=== PATIENT | male | born 1940 | race Caucasian/White ===

== ENCOUNTER → 2024-02-24 | Outpatient (REF) | payer MEDICARE, BC, SELFPAY ==
[2024-02-24 19:44] LABS: Urine Albumin Negative (Neg - Trace); Urine Bilirubin Negative (Negative); Urine Character Clear (Clear); Urine Color Yellow; Urine Glucose Negative (Negative); Urine Ketone Negative (Negative); Urine Leukocyte 2+ (Negative); Urine Nitrite Negative (Negative); Urine Occult Blood Negative (Negative); Urine Urobilinogen Negative (Neg - 1+)
[2024-02-24 19:57] LABS: Urine Squamous Cell 0-2 /LPF (Few)
[2024-02-24 19:58] LABS: Urine Calcium Oxalate Crystals Present; Urine Red Blood Cell 0-2 /HPF (0-2); Urine White Cell 26-30 /HPF (0-5)
[2024-02-24 19:59] LABS: Urine Bacteria Moderate (Negative)
== END ==
LOC: OLABMERCHI
PROVIDERS: ATTENDING PHYSICIAN Hospitalist
DX: N39.0 Urinary tract infection, site not specified (principal)
CPT/HCPCS: 81003; 81015; 87086; 87147; 87186

== ENCOUNTER 2024-03-23 23:20 | Emergency (ER) | payer MEDICARE, BC, SELFPAY ==
[2024-03-23 23:22] VITALS: BP 182/84; BMI 27.1
[2024-03-24] VITALS: BP 171/81
--- NOTE | 2024-03-24 00:21 | ED.GENMED ---
History of Present Illness
General
Chief Complaint: Fall
Source: patient
Exam Limitations: none
Time Seen by Provider: 03/24/24 00:12
Nursing documentation reviewed up to this point in time: agreed with
Travel History
Have you had any contact with someone who has COVID-19?: Unable to Answer
Do you have any symptoms of coronavirus? Fever > 100 degrees, chills, cough, shortness of breath, sore throat, loss of taste or smell, muscle aches, or headache?: Unable to Answer
History of Present Illness
History of Present Illness:
Patient with history of dementia, presents to ED from longterm secondary to scalp laceration, noted by staff members this evening. Patient was noted to be crawling in his room, with blood streaking down his face. Patient unable to recall if he
fell down, but does remember having intense pain on top of his head. Denies neck pain. Denies blurred vision. Denies loss of sensation or weakness. Denies chest pain. Denies back pain. Denies abdominal pain. Denies nausea or vomiting.
Past History
Past History
ED Past Medical History: GERD, HTN, Hypercholesterolemia and Other (Prostatic hypertrophy, macular degeneration, bilateral hearing aids)
ED Past Surgical History: Cholecystectomy
Social History
Personal:
Living: with family
Employment: Retired
Review of Systems
Review of Systems
Allergies reviewed?: Yes
Unable to obtain full review of systems at this time due to: dementia
All Other Systems: Not applicable
Phy Exam
Physical Exam
Physical Exam:
Physical Exam
General: no apparent distress, not acutely ill. afebrile
Head: an approx 3cm linear laceration over top of scalp without bleeding.
Neck: supple. normal range of motion.
Heart: s1/s2 regular rate and rhythm, no murmur. equal radial pulses.
Lungs: no acute respiratory distress. clear bilaterally
Abdomen: normal bowel sounds. not tender.
Neuro: alert and oriented x 2. no focal neurological deficits
Skin: no rash
Psychiatric: well kept. interactive and cooperative
Extremities: no edema. no calf tenderness.
Course
Orders/Labs/Results
Orders:
Orders
03/24/24 00:17
CT Head W/o Iv Contrast Urgent
Comment:
Reason For Exam: scalp laceration, after trauma
Vital Signs
Initial and Last Documented VS:
Initial Vital Signs
Temp Pulse Resp BP Pulse Ox
97.7 F 57 16 182/84 98
03/23/24 23:22 03/23/24 23:22 03/23/24 23:22 03/23/24 23:22 03/23/24 23:22
Last Documented Vital Signs
Temp Pulse Resp BP Pulse Ox
97.7 F 58 16 143/85 97
03/23/24 23:22 03/24/24 01:43 03/24/24 01:43 03/24/24 03:00 03/24/24 03:45
Procedures
Laceration Closure
Scalp:
Status of Wound: clean
Size of Wound in cm: 3
Description of Wound Edges: sharp
Preparation: cleaned with SurClens
Revision/Debridement: routine- no revision
Skin Closure Material: skin ayla (3 ayla)
MDM/Problems Addressed
MDM/Problems Addressed:
Wound well-approximated with 3 ayla, without complication. Patient remains hemodynamically and neurologically intact during observation. No other signs of trauma noted. Per longterm, patient has been behaving normally recently, without any
significant changes. Patient does fall frequently, per longterm. As such, no further workup is necessary at this point.
*Critical Care Note
Total Time (30-74mins, 75-104mins- exclusive of procedures): Not Applicable
ED Attending Note
-
Portions of this chart may have been created with voice recognition software.� Occasional wrong word or��sound alike� substitutions may have occurred due to the inherent limitations of voice recognition software.
Discharge Plan
Departure
Patient Disposition: Skilled Nursing/SNF
Date of Disposition: 03/24/24
Time of Disposition: 01:18
Patient with high blood pressure during this ER visit?: Yes
Discharge Problem:
Laceration of scalp
Instructions: Head injury in adults, Laceration Repair With [place] (DC)
Prescriptions:
No Action
losartan 50 mg tablet
50 mg PO DAILY
simvastatin 20 mg tablet
20 mg PO DAILY
Hold Instructions: Resume on 10/27/23.
carbidopa-levodopa 25-100 mg tablet
1 tab PO BID
memantine 7 mg capsule,sprinkle,ER 24hr
7 mg PO DAILY
nitrofurantoin macrocrystal 50 mg Capsule
50 mg PO DAILY Qty: 30 0RF
Hold Instructions: Resume on 10/26/23.
polyethylene glycol 3350 [HealthyLax] 17 gram Powder In Packet
17 g PO DAILY Qty: 30 0RF
pantoprazole 40 mg Tablet,Delayed Release (Dr/Ec)
40 mg PO DAILY Qty: 30 0RF
pramipexole 0.25 mg Tablet
0.25 mg PO DAILY
bethanechol chloride 50 mg Tablet
25 mg PO BID
tamsulosin 0.4 mg Capsule
0.4 mg PO DAILY
finasteride 5 mg Tablet
5 mg PO DAILY
Referrals:
Shell Abel DO [Family Provider] -
Activity Restrictions/Additional Instructions:
As discussed, you are being discharged back to longterm for continual care. [place] will need to be removed in 7 to 10 days.
Interventions
Interventions:
*Risk Screen - Suicide Last Done: 03/23/24 23:22
*General Assessment Last Done: 03/23/24 23:22
*Neglect/Abuse Screening Last Done: 03/23/24 23:22
ED- Fall Risk Assessment Last Done: 03/23/24 23:34
*ED COVID-19 Vaccine History Last Done: 03/23/24 23:22
*Nursing Disposition Last Done: 03/24/24 04:16
ED-Musculoskeletal Assessment Last Done: 03/23/24 23:34
ED- Neurological Assessment Last Done: 03/23/24 23:34
ED-Skin Assessment Last Done: 03/23/24 23:34
Discharge Date and Time
Discharge Date/Time: 03/24/24 04:17
Print Language: TOGOLESE
[2024-03-24 01:43] VITALS: BP 170/90
[2024-03-24 02:00] VITALS: BP 164/82
[2024-03-24 03:00] VITALS: BP 143/85
== END 2024-03-24 04:17 ==
LOC: EMR 23:20
PROVIDERS: EMERGENCY PHYSICIAN Emergency Medicine; FAMILY PHYSICIAN Hospitalist
DX: S01.01XA Laceration without foreign body of scalp, initial encounter (principal); W19.XXXA Unspecified fall, initial encounter; I10 Essential (primary) hypertension; F03.90 Unspecified dementia, unspecified severity, without behavioral disturbance, psychotic disturbance, mood disturbance, and anxiety
CPT/HCPCS: 99284; 12002; 70450

== ENCOUNTER 2024-05-01 15:40 | Emergency (ER) | payer MEDICARE, BC, SELFPAY ==
[2024-05-01 15:45] VITALS: BP 170/87
[2024-05-01 15:50] VITALS: BMI 27.8
--- NOTE | 2024-05-01 15:58 | ED.GENMED ---
History of Present Illness
General
Chief Complaint: Blood Pressure Problem
Source: patient
Exam Limitations: none
Time Seen by Provider: 05/01/24 15:49
Nursing documentation reviewed up to this point in time: agreed with
Travel History
Have you had any contact with someone who has COVID-19?: No
Do you have any symptoms of coronavirus? Fever > 100 degrees, chills, cough, shortness of breath, sore throat, loss of taste or smell, muscle aches, or headache?: No
History of Present Illness
History of Present Illness:
84-year-old male with past medical history of dementia Parkinson's abdominal aortic aneurysm hypertension prostatic hypertrophy sent from [facility] physical therapy. EMS reports the patient was doing physical therapy and physical therapist
noticed the patient legs seem swollen his blood pressure was 160s over 90s higher than normal. Patient is awake alert he is minimally confused but able to answer questions has no complaints at this time. It is documented from medical chart from
assisted the patient is only on losartan 50 mg once daily for blood pressure. No other blood pressure medicine. Patient has no complaints he denies any shortness of breath chest pain.
Past History
Past History
ED Past Medical History: GERD, HTN, Hypercholesterolemia and Other (Prostatic hypertrophy, macular degeneration, bilateral hearing aids)
ED Past Surgical History: Cholecystectomy
Social History
Personal:
Living: with family
Employment: Retired
Review of Systems
Review of Systems
Allergies reviewed?: Yes
All Other Systems: ROS reviewed and negative except as documented in HPI and ROS
Constitutional: Reports no symptoms
Respiratory: Reports no symptoms
Cardiac: Reports no symptoms
ABD/GI: Reports no symptoms
: Reports no symptoms
Musculoskeletal: Reports other (lower extremity swelling b/l )
Skin: Reports no symptoms
Neurological: Reports no symptoms
Psychiatric: Reports no symptoms
Phy Exam
General Physical Exam
General Presentation: no apparent distress
General age: appears stated age
General Skin: warm and dry
General Habitus: normal
General Mental: alert
General Hydration: appears well hydrated
Cardiovascular Exam
Cardiovascular Exam: bradycardia
Pulmonary Exam
Pulmonary Exam: lungs clear and no respiratory distress
Neurological Exam
Neurological Exam: alert
Musculoskeletal Exam
Musculoskeletal Exam: other (Patient with swelling to ankles lower extremities)
Course
Orders/Labs/Results
Orders:
Orders
05/01/24 15:48
Electrocardiogram (*1) Urgent
Reason for Study: Bradycardia / Tachycardia
05/01/24 15:49
EKG- Treatment ONCE
05/01/24 16:06
CMP [Comprehensive Metabolic Panel] Urgent
Complete Blood Count/With Diff Urgent
05/01/24 16:13
Venous Doppler Lwr Ext Bilat [US Periph Venous LOWER Ext Asael] Urgent
Comment:
Reason For Exam: b/l l/e swelling
Abnormal Lab Results
05/01/24
16:06
RBC 4.61 L 10^6/uL
(4.70-6.10)
MCV 94.8 H fL
(80.0-94.0)
MCH 32.1 H pg
(27.0-31.0)
Absolute Lymphs (auto) 1.0 L 10^3/uL
(1.2-3.4)
Absolute Monos (auto) 0.7 H 10^3/uL
(0.1-0.6)
Lymphocytes % 15.9 L %
(20.5-51.1)
Monocytes % 11.2 H %
(1.7-9.3)
BUN 27 H mg/dl
(9-20)
Glucose 101 H mg/dl
(70-99)
Total Bilirubin 1.5 H mg/dl
(0.2-1.3)
05/01/24 16:06
05/01/24 16:06
Vital Signs
Initial and Last Documented VS:
Initial Vital Signs
Pulse Ox
98
05/01/24 15:44
Last Documented Vital Signs
Temp Pulse Resp BP Pulse Ox
97.8 F 54 13 182/83 97
05/01/24 15:45 05/01/24 16:15 05/01/24 16:15 05/01/24 16:10 05/01/24 16:15
MDM/Problems Addressed
Differential Diagnosis Includes:
not limited to: edema elevated bp
MDM/Problems Addressed:
Patient is a 84-year-old male sent from [facility] patient was in physical therapy and they noticed his legs were more swollen than normal and his blood pressure was on the higher side. Patient presents awake alert no acute distress he
has no complaints he is able to answer questions mild memory issues but does answer questions appropriately. On exam he does have some swelling to lower extremities however there is no erythema or evidence of infection nontender no calf tenderness
ultrasound negative bilateral lower extremity for DVT. Patient is afebrile normal white count stable hemoglobin, BUN elevated at 27 with normal creatinine.
Blood pressure on the higher side 170s 180s over 80s. Heart rate in the 50s. Son at bedside reports this is patient's normal heart rate. Patient is in no acute distress and has no complaints at this time. Lungs are clear nontachycardic
nonhypoxic no history of CHF. Nothing urgent to do here in the ER will DC with primary care physician evaluation for further management of swelling and elevated blood pressure. Patient is currently at side only taking losartan. Son at bedside
reports patient is due to see primary care physician tomorrow at [facility].
Chronic conditions affecting care: HTN
*Radiology
Radiology exam reviewed: radiology read reviewed
*EKG
Interpreted by ED Provider?: Yes
Heart Rate: 57
Rate: bradycardiac
Rhythm: sinus
*Critical Care Note
Total Time (30-74mins, 75-104mins- exclusive of procedures): Not Applicable
ED Attending Note
-
Portions of this chart may have been created with voice recognition software.� Occasional wrong word or��sound alike� substitutions may have occurred due to the inherent limitations of voice recognition software.
Discharge Plan
Departure
Patient Disposition: Correction/SNF
Date of Disposition: 05/01/24
Time of Disposition: 17:52
Patient with high blood pressure during this ER visit?: Yes
Condition: Fair
Covid-19: Not Applicable
Discharge Problem:
Bilateral edema of lower extremity, elevated blood pressure
Instructions: High Blood Pressure (DC), Swelling, BLOOD PRESSURE
Prescriptions:
No Action
losartan 50 mg tablet
50 mg PO DAILY
simvastatin 20 mg tablet
20 mg PO HS
Hold Instructions: Resume on 10/27/23.
carbidopa-levodopa 25-100 mg tablet
1 tab PO BID
memantine 7 mg capsule,sprinkle,ER 24hr
7 mg PO DAILY
nitrofurantoin macrocrystal 50 mg Capsule
50 mg PO DAILY Qty: 30 0RF
Hold Instructions: Resume on 10/26/23.
polyethylene glycol 3350 [HealthyLax] 17 gram Powder In Packet
17 g PO DAILY Qty: 30 0RF
pantoprazole 40 mg Tablet,Delayed Release (Dr/Ec)
40 mg PO DAILY Qty: 30 0RF
pramipexole 0.25 mg Tablet
0.25 mg PO DAILY
bethanechol chloride 50 mg Tablet
25 mg PO BID@0700,1500
tamsulosin 0.4 mg Capsule
0.4 mg PO DAILY
finasteride 5 mg Tablet
5 mg PO DAILY
Referrals:
UNKNOWN - PT DOES,NOT KNOW [Family Provider] -
Activity Restrictions/Additional Instructions:
Patient must be evaluated by primary care physician for further evaluation and possible treatment for lower extremity swelling and elevated blood pressure. Patient had an ultrasound today of bilateral lower extremities which were negative for DVT.
Patient had blood work done, patient is mildly dehydrated and should increase water intake.
return if any worsening of symptoms
Interventions
Interventions:
*Risk Screen - Suicide Last Done: 05/01/24 15:50
*General Assessment Last Done: 05/01/24 15:50
*Neglect/Abuse Screening Last Done: 05/01/24 15:50
*ED COVID-19 Vaccine History Last Done: 05/01/24 15:50
ED- Cardiac Assessment Last Done: 05/01/24 15:50
ED- Pulmonary Assessment Last Done: 05/01/24 15:50
Discharge Date and Time
Print Language: NEPALI
[2024-05-01 16:10] VITALS: BP 182/83
[2024-05-01 16:14] LABS: % Basophils 0.6 % (0-2); % Eosinophils 1.9 % (0-6); % Immature Granulocytes 0.3 % (0-0.5); % Lymphocytes 15.9 % (20.5-51.1); % Monocytes 11.2 % (1.7-9.3); % Neutrophils 70.1 % (42.2-75.2); Absolute Eosinophils 0.1 10^3/uL (0-0.7); Absolute Monocytes 0.7 10^3/uL (0.1-0.6); Absolute Neutrophils 4.5 10^3/uL (1.4-6.5); Hematocrit 43.7 % (39.0-52.0); Hemoglobin 14.8 g/dL (13.0-18.0); Mean Corp Hgb Conc. 33.9 g/dL (33.0-37.0); Mean Corpuscular Hgb 32.1 pg (27.0-31.0); Mean Corpuscular Volume 94.8 fL (80.0-94.0); Mean Platelet Volume 10.1 fL (7.4-10.4); Nucleated Red Blood Cells % 0 % (-); Platelet Count 163 10^3/uL (130-400); Red Blood Cell Count 4.61 10^6/uL (4.70-6.10); Red Cell Dist. Width 13.2 % (11.5-14.5); White Blood Cell Count 6.4 10^3/uL (4.8-10.8)
[2024-05-01 16:47] LABS: ALT (SGPT) 13 U/L (0-50); AST (SGOT) 29 U/L (17-59); Albumin 4.2 g/dl (3.5-5.0); Alkaline Phosphatase 62 U/L (38-126); Blood Urea Nitrogen 27 mg/dl (9-20); Calcium 9.8 mg/dl (8.4-10.2); Carbon Dioxide 25 mmol/L (22-30); Chloride 104 mmol/L (98-107); Estimated Creatinine Clearance 48 ml/min; Glucose 101 mg/dl (70-99); Potassium 4.6 mmol/L (3.5-5.1); Sodium 137 mmol/L (135-145); Total Bilirubin 1.5 mg/dl (0.2-1.3); Total Protein 7.4 g/dl (6.3-8.2); eGFR 59.26
== END 2024-05-01 18:06 ==
LOC: EMR 15:40
PROVIDERS: EMERGENCY PHYSICIAN Emergency Medicine
DX: R60.0 Localized edema (principal); G20.A1 Parkinson's disease without dyskinesia, without mention of fluctuations; F02.80 Dementia in other diseases classified elsewhere, unspecified severity, without behavioral disturbance, psychotic disturbance, mood disturbance, and anxiety; I10 Essential (primary) hypertension; K21.9 Gastro-esophageal reflux disease without esophagitis; N40.0 Benign prostatic hyperplasia without lower urinary tract symptoms; E78.00 Pure hypercholesterolemia, unspecified; H35.30 Unspecified macular degeneration; Z79.899 Other long term (current) drug therapy; Z90.49 Acquired absence of other specified parts of digestive tract
CPT/HCPCS: 99284; 80053; 85025; 93005; 93970

== ENCOUNTER 2024-06-27 16:29 | Observation (INO) | payer MEDICARE, BC, SELFPAY ==
[2024-06-27] VITALS (11 sets, daily range): BP systolic 136–191; BP diastolic 69–109; BMI 26.5; BMI 25.4
[2024-06-27 10:26] LABS: Urine Albumin Negative (Neg - Trace); Urine Bilirubin Negative (Negative); Urine Character Clear (Clear); Urine Color Yellow; Urine Glucose Negative (Negative); Urine Ketone Negative (Negative); Urine Leukocyte 2+ (Negative); Urine Nitrite Negative (Negative); Urine Occult Blood Negative (Negative); Urine Specific Gravity 1.025 (<1.030); Urine Urobilinogen Negative (Neg - 1+)
[2024-06-27 10:34] LABS: % Basophils 0.6 % (0-2); % Eosinophils 0.2 % (0-6); % Immature Granulocytes 0.6 % (0-0.5); % Lymphocytes 14.6 % (20.5-51.1); % Monocytes 21.3 % (1.7-9.3); % Neutrophils 62.7 % (42.2-75.2); Absolute Lymphocytes 0.7 10^3/uL (1.2-3.4); Absolute Monocytes 1.1 10^3/uL (0.1-0.6); Absolute Neutrophils 3.2 10^3/uL (1.4-6.5); Hematocrit 40.3 % (39.0-52.0); Hemoglobin 14.3 g/dL (13.0-18.0); Mean Corp Hgb Conc. 34.8 g/dL (33.0-37.0); Mean Corpuscular Hgb 31.8 pg (27.0-31.0); Mean Corpuscular Volume 91.5 fL (80.0-94.0); Nucleated Red Blood Cells % 0 % (-); Platelet Count 139 10^3/uL (130-400); Red Blood Cell Count 4.46 10^6/uL (4.70-6.10); Red Cell Dist. Width 12.7 % (11.5-14.5); White Blood Cell Count 5.1 10^3/uL (4.8-10.8)
[2024-06-27 10:40] LABS: ALT (SGPT) 21 U/L (0-50); AST (SGOT) 27 U/L (17-59); Albumin 3.9 g/dl (3.5-5.0); Alkaline Phosphatase 58 U/L (38-126); Blood Urea Nitrogen 22 mg/dl (9-20); Calcium 9.5 mg/dl (8.4-10.2); Carbon Dioxide 25 mmol/L (22-30); Chloride 104 mmol/L (98-107); Estimated Creatinine Clearance 51 ml/min; Glucose 112 mg/dl (70-99); Potassium 3.8 mmol/L (3.5-5.1); Sodium 137 mmol/L (135-145); Total Bilirubin 1.4 mg/dl (0.2-1.3); Total Protein 6.5 g/dl (6.3-8.2); eGFR 59.26
[2024-06-27 10:41] LABS: Lactic Acid 1.7 mmol/L (0.7-2.0)
--- NOTE | 2024-06-27 10:48 | ED.GENMED ---
History of Present Illness
General
Chief Complaint: Fall
Source: patient
Exam Limitations: none
Time Seen by Provider: 06/27/24 10:14
Nursing documentation reviewed up to this point in time: agreed with
History of Present Illness
History of Present Illness:
pt is a 84 y/o F with h/o AAA, parkinsons, dementia, amb dysfunction, htn
here after being found by staff at [facility] on the floor,
pt says he may have rolled off the bed but cannot remember
he has dementia and according to the son, is at [facility]
he has a fever here they were unaware of
he has no complaints
apparently pt said he may have rolled out of the bed
he has a h/o utis and is on macrobid low dose at baseline
no vomiting, abdomianl pain,, cp, sob, headache, neck pain
Past History
Past History
ED Past Medical History: GERD, HTN, Hypercholesterolemia and Other (Prostatic hypertrophy, macular degeneration, bilateral hearing aids)
ED Past Surgical History: Cholecystectomy
Social History
Personal:
Living: with family
Employment: Retired
Review of Systems
Review of Systems
Allergies reviewed?: Yes
Unable to obtain full review of systems at this time due to: dementia
All Other Systems: Not applicable
Phy Exam
Physical Exam
Physical Exam:
GENERAL: Alert , in no apparent distress, dementia
EYE: pupils equal and reactive
NECK: Supple
ENT: o/p clr, mmm.
CARDIAC: Regular rate and rhythm .
LUNGS: Clear breath sounds bilaterally, no acute respiratory distress, no wheezes/rales/rhonchi
ABDOMEN: Soft, without focal tenderness, no r/g, no cvat, normal bowel sounds
NEUROLOGICAL: Alert and oriented x 2, no focal neuro deficits - some memory issues, some confusion, generally weak but no focal weakness
SKIN: Warm and dry, skin intact.
MUSCULOSKELETAL: No edema, well perfused. neg giuseppe's sign
PSYCH: Normal and appropriate interaction. dementia
Course
Orders/Labs/Results
Orders:
Orders
06/27/24 10:18
Complete Blood Count/With Diff Urgent
Comprehensive Metabolic Panel Urgent
Creatine Phosphokinase Urgent
Comment: ADDON
Lactate Level [Lactic Acid] Routine
Urinalysis Urgent
Date Specimen was Collected: 06/27/24
Time Specimen was Collected: 10:17
Urine Microscopic Urgent
Date Specimen was Collected: 06/27/24
Time Specimen was Collected: 10:17
06/27/24 10:20
EKG [Electrocardiogram (*1)] Urgent
Reason for Study: Fatigue / Weakness
06/27/24 10:21
EKG- Treatment ONCE
06/27/24 10:43
Acetaminophen [Tylenol] 650 mg PO NOW STA
06/27/24 10:44
CT Cervical Spine W/o Iv Contr Urgent
Comment:
Reason For Exam: unwitnessed fall
06/27/24 10:45
Add On- LAB Urgent
Tests Added?: cpk
CT Head W/o Iv Contrast Urgent
Comment:
Reason For Exam: unwitnessed fall, no thinners, dementia
CR Chest - 2 Views Urgent
Comment:
Reason For Exam: fever, fall, weakness
06/27/24 11:12
COVID-19 Antigen Urgent
Source: Nasal Swab
NT-proBNP Urgent
06/27/24 12:48
0.9% Sodium Chloride 500 ml [Nss] 500 ml IV BOLUS
06/27/24 Dinner
Regular
At Your Request: Limited, Greaser Operator Required
Does patient need a safe tray?: No
06/27/24 15:53
Carbidopa/Levodopa [Sinemet 25-100] 1 tablet PO NOW STA
Losartan [Cozaar] 50 mg PO NOW STA
06/27/24 15:58
Admit/Transfer Patient As Directed
Co-Sign Provider:
Level of Care: Observation services
Assign to:: Medical/Surgical
Physician / Group: Syl Jones
Diagnosis: TME 2/2 Covid-19
PRN Pain Medication Management As Directed
May give lesser potent ordered pain med per pt: Yes
preference::
Protocol:: Medication orders for pain may be administered in a
manner that supports deferring to patient preference
when the pt is:
- Requesting an ordered lesser potent pain medication.
Least to most potent pain medications are defined
as: acetaminophen < NSAID < tramadol < opioids
(morphine, oxycodone, hydromorphone).
- Requesting a lesser dose of the same medication IF
ORDERED.
- Requesting a less intrusive route of administration
if both routes are prescribed by the provider (PO <
IV).
06/27/24 16:00
Code Status As Directed
Resuscitation Status: Do not resuscitate
Reached after discussion with pt or family/Healthcare POA: Yes
DNR Bracelet Application ONCE
06/27/24 19:22
Acetaminophen [Tylenol] 650 mg PO Q4HPRN PRN
Bisacodyl [Dulcolax] 10 mg RECTAL [id number] PRN
Docusate W/Senna [Senokot-S] 1 tablet PO BIDPRN PRN
Enoxaparin Sodium [Lovenox] 40 mg SC QPM
Finasteride [Proscar] 5 mg PO DAILY
Nitrofurantoin Macrocrystal [Macrodantin] 50 mg PO DAILY
Pantoprazole [Protonix] 40 mg PO DAILY
Polyethylene Glycol Powder [Miralax] 17 grams PO DAILYPRN PRN
Pramipexole [Mirapex] 0.25 mg PO DAILY
Tamsulosin [Flomax] 0.4 mg PO DAILY
06/27/24 19:22
Activity As Directed
Activity Level: As Tolerated
Vital Signs As Directed
Frequency: Per unit guidelines
Ot Eval And Treat Routine
Pt Eval And Treat Routine
Activity Level: As Tolerated
DX Deep Vein Thrombosis Video Routine
06/27/24 19:45
0.9% Sodium Chloride 1000 ml [Nss] 1,000 ml IV 80 mls/hr
06/27/24 20:00
Bethanechol [Urecholine] 25 mg PO BID
Memantine HCl [Namenda] 5 mg PO BID
06/27/24 22:00
Atorvastatin [Lipitor] 10 mg PO HS
06/28/24 06:17
Basic Metabolic Panel IN AM
Complete Blood Count/With Diff IN AM
Magnesium IN AM
06/28/24 07:00
Carbidopa/Levodopa [Sinemet 25-100] 1 tablet PO BID@0700,1500
06/28/24 08:00
Losartan [Cozaar] 50 mg PO DAILY
Polyethylene Glycol Powder [Miralax] 17 grams PO DAILY
Abnormal Lab Results
06/27/24 06/27/24
10:18 11:12
RBC 4.46 L 10^6/uL
(4.70-6.10)
MCH 31.8 H pg
(27.0-31.0)
Absolute Lymphs (auto) 0.7 L 10^3/uL
(1.2-3.4)
Absolute Monos (auto) 1.1 H 10^3/uL
(0.1-0.6)
Immature Gran % 0.6 H %
(0-0.5)
Lymphocytes % 14.6 L %
(20.5-51.1)
Monocytes % 21.3 H %
(1.7-9.3)
BUN 22 H mg/dl
(9-20)
Glucose 112 H mg/dl
(70-99)
Total Bilirubin 1.4 H mg/dl
(0.2-1.3)
Creatine Kinase 229 H U/L
(55-170)
Ur Leukocyte Esterase 2+ A
(Negative)
Urine RBC 7-10 A /HPF
(0-2)
Urine WBC 16-20 A /HPF
(0-5)
Urine Bacteria Moderate A
(Negative)
SARS-CoV-2 Antigen Positive A
(Negative)
06/27/24 10:18
06/27/24 10:18
Vital Signs
Initial and Last Documented VS:
Initial Vital Signs
Temp Pulse Resp BP Pulse Ox
100.9 F H 64 12 164/71 93
06/27/24 10:05 06/27/24 10:05 06/27/24 10:05 06/27/24 10:05 06/27/24 10:05
Last Documented Vital Signs
Temp Pulse Resp BP Pulse Ox
98.1 F 50 16 136/69 95
06/27/24 23:40 06/27/24 23:40 06/27/24 23:40 06/27/24 23:40 06/27/24 23:40
MDM/Problems Addressed
Differential Diagnosis Includes:
uti, head injury, syncope, covid, pna
MDM/Problems Addressed:
natalie myles 84 y/o M with h/o parkinsons, dementia, chronic UTIs, from [facility], unwitnessed fall, on ground at most for 1-2 hours
no thinners, no complaints, at baseline
febrile, stable bp
covid + vaccniated; urine also appears infected (on chronic macrobid suppresion)
no lomeli
cxr clear, head/neck neg ct
generally weak
probable UTI thought pt's fever could be explained by covid
pt is chronic abx suppression for frequent utis
given pt's fall, weakness, and fever, with covid an dposs uti, will obs overnight for ivf
defer uti treatment to medicine team
*Critical Care Note
Total Time (30-74mins, 75-104mins- exclusive of procedures): Not Applicable
ED Attending Note
-
Portions of this chart may have been created with voice recognition software.� Occasional wrong word or��sound alike� substitutions may have occurred due to the inherent limitations of voice recognition software.
Discharge Plan
Departure
Patient Disposition: Admit
Date of Disposition: 06/27/24
Time of Disposition: 12:43
Admit to: Med/Surg
Presentation/result/management discussed w/ accepting MD/DO: Hospitalist
Condition: Fair
Covid-19: Not Applicable
Discharge Problem:
Acute UTI, COVID-19, Weakness
Interventions
Interventions:
*Risk Screen - Suicide Last Done: 06/27/24 10:09
*General Assessment Last Done: 06/27/24 10:09
*Neglect/Abuse Screening Last Done: 06/27/24 10:09
ED- Fall Risk Assessment Last Done: 06/27/24 19:23
*ED COVID-19 Vaccine History Last Done: 06/27/24 10:05
*Nursing Disposition Last Done: 06/27/24 19:23
ED-Musculoskeletal Assessment Last Done: 06/27/24 15:07
ED- Neurological Assessment Last Done: 06/27/24 10:15
ED-Skin Assessment Last Done: 06/27/24 10:22
Discharge Date and Time
Discharge Date/Time: 06/27/24 19:23
[2024-06-27] MEDS: TYLENOL 650 MG PO (11:08)
[2024-06-27 11:12] LABS: Urine Amorphous Seen; Urine Mucus Many
[2024-06-27 11:13] LABS: Urine Calcium Oxalate Crystals Seen; Urine Hyaline Cast 0-2 /LPF (0-2)
[2024-06-27 11:15] LABS: Urine White Cell 16-20 /HPF (0-5)
[2024-06-27 11:18] LABS: Urine Bacteria Moderate (Negative)
[2024-06-27 11:48] LABS: NT-proBNP 313 pg/ml
[2024-06-27 11:50] LABS: COVID-19 Antigen Positive (Negative)
[2024-06-27 12:07] LABS: Creatine Phosphokinase 229 U/L (55-170)
[2024-06-27] MEDS: NSS 500 IV (12:58)
--- NOTE | 2024-06-27 14:59 | HPS.HSE ---
Family Physician
-
Family Physician: NOT KNOW UNKNOWN - PT DOES
Chief Complaint
-
found down
History of Present Illness
Mr. Ayden Mott is a 84 yo man with hx AAA, Parkinson's, dementia, ambulatory dysfunction was brought to the ER after found down by staff at [facility]. Patient has dementia and unable to give further history. He is able to tell me he is in the
ER and has covid.
Denies chest pain or shortness of breath. Denies nausea/vomiting/diarrhea. Denies abdominal pain.
Medical History
Past Medical History
Past Medical History: Reports Other (AAA, Parkinson's, dementia, ambulatory dysfunction)
Past Surgical History: Reports Other
Social History
Tobacco: Non-smoker
Alcohol: None
Family History
Family History: Not pertinent
Allergies / Home Medications
Allergies reflects when Allergies were last updated in [facility].
Home Medications with original date entered in [facility]
Allergy/Medication List:
Allergies
Allergy/AdvReac Type Severity Reaction Status Date / Time
No Known Allergies Allergy Verified 05/01/24 15:49
Home Medications
carbidopa 25 mg-levodopa 100 mg tablet 1 tab PO BID@0700,1500 parkinson's 09/24/23
losartan 50 mg tablet 50 mg PO DAILY Blood Pressure 09/24/23
memantine 7 mg capsule sprinkle,extended release 24hr 7 mg PO DAILY memory 09/24/23
pantoprazole 40 mg tablet,delayed release 40 mg PO DAILY #30 tabs 10/06/23
polyethylene glycol 3350 17 gram oral powder packet (HealthyLax) 17 g PO DAILY #30 ea 10/06/23
pramipexole 0.25 mg tablet 0.25 mg PO DAILY restless leg 10/11/23
finasteride 5 mg tablet 5 mg PO DAILY 03/23/24
tamsulosin 0.4 mg capsule 0.4 mg PO DAILY 03/23/24
bethanechol chloride 25 mg tablet 25 mg PO BID 06/27/24
menthol 4 % topical gel (Biofreeze (menthol)) 1 applic topical QID 06/27/24
nitrofurantoin macrocrystal 50 mg capsule 50 mg PO DAILY 06/27/24
simvastatin 20 mg tablet 20 mg PO HS 06/27/24
Review of Systems
-
Unable to obtain full review of systems at this time due to: Dementia
A 12 point ROS was completed and negative except as noted: Yes
Physical Exam
Vital Signs
Vital Signs
Temp Pulse Resp BP Pulse Ox
100.9 F H 54 17 191/79 97
06/27/24 10:05 06/27/24 14:00 06/27/24 14:00 06/27/24 13:00 06/27/24 14:00
Physical Exam
General: No Apparent Distress
HEENT: PERRLA
Respiratory: Clear; No Wheezes
Cardiac: S1/S2 and Regular Rhythm
GI: Soft and Non Tender
Musculoskeletal: No Edema
Skin: Warm and Dry; No Rash
Neuro: AO x 3
Psych: Calm
Laboratory Results
-
06/27/24 10:18
06/27/24 10:18
Laboratory Results
Lactic Acid 1.7 mmol/L (0.7-2.0) 06/27/24 10:18
Total Bilirubin 1.4 mg/dl (0.2-1.3) H 06/27/24 10:18
AST 27 U/L (17-59) 06/27/24 10:18
ALT 21 U/L (0-50) 06/27/24 10:18
Alkaline Phosphatase 58 U/L (38-126) 06/27/24 10:18
Data Reviewed
-
Diagnostic Radiology: Report Reviewed by me
Lab Data: Labs Reviewed by me
Impression/Plan
-
Mr. Ayden Mott is a 84 yo man with hx AAA, Parkinson's, dementia, ambulatory dysfunction was brought to the ER after found down by staff at [facility]. Patient has dementia and unable to give further history.
Triage VS: T 100.9, P 64, RR 12, BP 164/71, SpO2 93%
LABS: WBC 5.1, Hg 14.3, PLT 139, Na 137, K+ 3.8, BUN 22, Cr 1.2, Glucose 112, Lactate 1.7, T. Bili 1.4, AST 27, ALT 21, Alk Phos 58, CK 229, BNP 313
Covid Positive
HEAD CT 06/27/[address]
IMPRESSION:
No acute intracranial abnormality.
No acute abnormalities within the cervical spine.
Multilevel cervical spondylosis.
CXR 06/27/24
IMPRESSION:
No radiographic evidence of acute cardiopulmonary abnormality.
Patient given tylenol and IVF.
TME 2/2 Covid-19
Dementia
Weakness
-admit to observation
-patient not currently hypoxic
-PT/OT
-discussed risks/benefits of Paxlovid with son and will hold off for now, monitor symptoms
Parkinson's Disease
-TERRAZZO TILE SETTER Sinemet, Pramipexole
Essential Hypertension
-TERRAZZO TILE SETTER Losartan
BPH
-TERRAZZO TILE SETTER Finasteride, Flomax
HLD
-TERRAZZO TILE SETTER simvastatin
DVT PPx Lovenox subQ
DNR - confirmed with son on admission
[2024-06-27] MEDS: MIRAPEX 0.25 MG PO (21:00)
[2024-06-27] MEDS: FLOMAX 0.4 MG PO (21:00)
[2024-06-27] MEDS: PROTONIX 40 MG PO (21:01)
[2024-06-27] MEDS: LIPITOR 10 MG PO (21:01)
[2024-06-27] MEDS: NAMENDA 5 MG PO (21:01)
[2024-06-27] MEDS: LOVENOX 40 MG SC (21:01)
[2024-06-27] MEDS: PROSCAR 5 MG PO (21:01)
[2024-06-27] MEDS: MACRODANTIN 50 MG PO (21:02)
[2024-06-27] MEDS: NSS 1000 IV (21:02)
[2024-06-27] MEDS: URECHOLINE 25 MG PO (21:03)
--- NOTE | 2024-06-27 22:13 | PTCARENOTE ---
Pt admitted to room 2122. AAOx1 Family at bed side providing pt's information. Pt denies any discomfort at this time. Unable to orient pt to the room due to dementia/confusion/hard of hearing. Medsitter, bed alarm and all safety measures in place.
[2024-06-28 06:37] LABS: % Basophils 0.3 % (0-2); % Eosinophils 0.5 % (0-6); % Immature Granulocytes 0.2 % (0-0.5); % Lymphocytes 13.8 % (20.5-51.1); % Monocytes 17.5 % (1.7-9.3); % Neutrophils 67.7 % (42.2-75.2); Absolute Lymphocytes 0.8 10^3/uL (1.2-3.4); Absolute Monocytes 1.1 10^3/uL (0.1-0.6); Absolute Neutrophils 4.1 10^3/uL (1.4-6.5); Hemoglobin 14.2 g/dL (13.0-18.0); Mean Corp Hgb Conc. 35.5 g/dL (33.0-37.0); Mean Corpuscular Hgb 33.3 pg (27.0-31.0); Mean Corpuscular Volume 93.7 fL (80.0-94.0); Mean Platelet Volume 10.1 fL (7.4-10.4); Nucleated Red Blood Cells % 0 % (-); Platelet Count 129 10^3/uL (130-400); Red Blood Cell Count 4.27 10^6/uL (4.70-6.10); Red Cell Dist. Width 12.8 % (11.5-14.5)
[2024-06-28 07:05] VITALS: BP 171/87
[2024-06-28 07:06] LABS: Blood Urea Nitrogen 20 mg/dl (9-20); Calcium 8.8 mg/dl (8.4-10.2); Carbon Dioxide 26 mmol/L (22-30); Chloride 107 mmol/L (98-107); Estimated Creatinine Clearance 61 ml/min; Glucose 90 mg/dl (70-99); Magnesium 2.1 mg/dl (1.6-2.3); Potassium 4.1 mmol/L (3.5-5.1); Sodium 134 mmol/L (135-145); eGFR > 60.00
[2024-06-28] MEDS: COZAAR 50 MG PO (08:44)
[2024-06-28] MEDS: MACRODANTIN 50 MG PO (08:44)
[2024-06-28] MEDS: MIRALAX 17 GRAMS PO (08:44)
[2024-06-28] MEDS: MIRAPEX 0.25 MG PO (08:44)
[2024-06-28] MEDS: URECHOLINE 25 MG PO ×2 (08:44→21:05)
[2024-06-28] MEDS: PROSCAR 5 MG PO (08:44)
[2024-06-28] MEDS: FLOMAX 0.4 MG PO (08:44)
[2024-06-28] MEDS: PROTONIX 40 MG PO (08:44)
[2024-06-28] MEDS: NAMENDA 5 MG PO ×2 (08:45→21:06)
[2024-06-28] MEDS: SINEMET 25-100 1 TABLET PO ×2 (08:45→15:26)
--- NOTE | 2024-06-28 08:52 | W.PN.HOSP.TC ---
Today's Communication/Plan
-
F/U PT/OT
consider DC later today
Assessment / Plan
Assessment / Plan
Mr. Ayden Mott is a 84 yo man with hx AAA, Parkinson's, dementia, ambulatory dysfunction was brought to the ER after found down by staff at [facility] found to be covid +.
HEAD CT 06/27/[address]
IMPRESSION:
No acute intracranial abnormality.
No acute abnormalities within the cervical spine.
Multilevel cervical spondylosis.
CXR 06/27/24
IMPRESSION:
No radiographic evidence of acute cardiopulmonary abnormality.
TME 2/2 Covid-19
Dementia
Weakness
-admit to observation
-patient not currently hypoxic
-PT/OT
-discussed risks/benefits of Paxlovid with son and will hold off for now, monitor symptoms - patient appears asymptomatic, will hold off
Parkinson's Disease
-HORSE BREAKER Sinemet, Pramipexole
Essential Hypertension
-HORSE BREAKER Losartan
BPH
-HORSE BREAKER Finasteride, Flomax
HLD
-HORSE BREAKER simvastatin
DVT PPx Lovenox subQ
DNR - confirmed with son on admission
Anticipated Discharge: Within 24 hours
Subjective/Interval History
-
Date of Service: June 28, 2024
feeling well
no complaints
looks comfortable
Objective Data
-
Labs:
Laboratory Results
06/28/24
06:17
WBC 6.0
Hgb 14.2
Hct 40.0
Plt Count 129 L
Sodium 134 L
Potassium 4.1
Chloride 107
Carbon Dioxide 26
BUN 20
Creatinine 1.0
Glucose 90
Calcium 8.8
Vital Signs:
Vital Signs
Temp Pulse Resp BP Pulse Ox
98.6 F 47 16 171/87 96
06/28/24 07:05 06/28/24 07:05 06/28/24 07:05 06/28/24 07:05 06/28/24 07:05
I&O
06/27/24 06/28/24 06/29/24
06:59 06:59 06:59
Intake Total 1360 / 1360
Balance 1360 / 1360
Review of Systems
-
Unable to obtain full review of systems at this time due to: Dementia
History Source: Patient
Physical Exam
-
General: Well Developed and No Apparent Distress
HEENT: Normocephalic, Atraumatic and Moist Mucous Membranes
Respiratory: Clear to Auscultation
Cardiac: Regular Rhythm and S1/S2; Negative Murmur, Rub or Gallop
GI: Soft, Nontender, Nondistended and Normal Bowel Sounds; Negative Organomegaly
Rectal: Deferred by Provider
Genito-urinary: [place]
Musculoskeletal: No Clubbing, No Cyanosis and No Edema
Skin: Negative Rash
Neuro: Awake and No Motor Deficits
Psych: Calm
Data Reviewed
-
Diagnostic Radiology: Report Reviewed by me
Labs: Labs Reviewed by me
[2024-06-28 11:00] VITALS: BP 150/78
[2024-06-28 15:25] VITALS: BP 135/53
--- NOTE | 2024-06-28 15:44 | CM ---
Patient positive for Covid-19; confused. Initial assessment completed via phone with son, Wayne
Pharmacy verified: [facility], [address]
Son reported that father lives @ [facility]
PLOF: son reported that father ambulated with a Rollator; was able to toilet, dress, and feed self; needed assistance with bathing. Medications managed by the staff
DME: rollator and cane; raised toilet, grab bars and seat in the walk-in shower
SNF stay at [facility] 10 months ago; home care for PT/OT (agency unknown; they discharged 2 weeks ago)
Transportation: Son will provide ride to home
Plan: PT/OT ordered. Evals pending; Disposition to be determined. CM will monitor tomorrow for discharge needs
[2024-06-28 15:50] VITALS: BP 136/72; PULSE 51; O2SAT 98
[2024-06-28 16:02] VITALS: BP 136/72; PULSE 51; O2SAT 98
[2024-06-28] MEDS: LOVENOX 40 MG SC (17:22)
[2024-06-28] MEDS: LIPITOR 10 MG PO (21:07)
[2024-06-28 23:46] VITALS: BP 141/72
[2024-06-29] MEDS: SINEMET 25-100 1 TABLET PO (06:28)
[2024-06-29 07:10] VITALS: BP 133/75
--- NOTE | 2024-06-29 09:08 | W.PN.HOSP.TC ---
Today's Communication/Plan
-
DC planning for SNF
Assessment / Plan
Assessment / Plan
Mr. Ayden Mott is a 84 yo man with hx AAA, Parkinson's, dementia, ambulatory dysfunction was brought to the ER after found down by staff at [facility] found to be covid +.
HEAD CT 06/27/[address]
IMPRESSION:
No acute intracranial abnormality.
No acute abnormalities within the cervical spine.
Multilevel cervical spondylosis.
CXR 06/27/24
IMPRESSION:
No radiographic evidence of acute cardiopulmonary abnormality.
TME 2/2 Covid-19
Dementia
Weakness
-admit to observation
-patient not currently hypoxic
-PT/OT --> SNF recommended
-discussed risks/benefits of Paxlovid with son and will hold off for now, monitor symptoms - patient appears asymptomatic, will hold off
Parkinson's Disease
-DIRECTOR OF PHARMACY Sinemet, Pramipexole
Essential Hypertension
-DIRECTOR OF PHARMACY Losartan
BPH
-DIRECTOR OF PHARMACY Finasteride, Flomax
HLD
-DIRECTOR OF PHARMACY simvastatin
DVT PPx Lovenox subQ
DNR - confirmed with son on admission
Anticipated Discharge: Within 24 hours
Subjective/Interval History
-
Date of Service: June 29, 2024
no new complaints
confused
Objective Data
-
Vital Signs:
Vital Signs
Temp Pulse Resp BP Pulse Ox
98.0 F 51 16 133/75 95
06/29/24 07:10 06/29/24 07:10 06/29/24 07:10 06/29/24 07:10 06/29/24 07:10
I&O
06/28/24 06/29/24 06/30/24
06:59 06:59 06:59
Intake Total 1360 / 1360 990 / 990
Output Total 425 / 425
Balance 1360 / 1360 565 / 565
Review of Systems
-
History Source: Patient
All other systems: Reviewed and negative
Physical Exam
-
General: Well Developed and No Apparent Distress
HEENT: Normocephalic, Atraumatic and Moist Mucous Membranes
Respiratory: Clear to Auscultation
Cardiac: Regular Rhythm and S1/S2; Negative Murmur, Rub or Gallop
GI: Soft, Nontender, Nondistended and Normal Bowel Sounds; Negative Organomegaly
Rectal: Deferred by Provider
Genito-urinary: [place]
Musculoskeletal: No Clubbing, No Cyanosis and No Edema
Skin: Negative Rash
Neuro: Awake and No Motor Deficits
Psych: Calm
Data Reviewed
-
Diagnostic Radiology: Report Reviewed by me
Labs: Labs Reviewed by me
[2024-06-29] MEDS: PROSCAR 5 MG PO (09:34)
[2024-06-29] MEDS: COZAAR 50 MG PO (09:35)
[2024-06-29] MEDS: PROTONIX 40 MG PO (09:35)
[2024-06-29] MEDS: FLOMAX 0.4 MG PO (09:35)
[2024-06-29] MEDS: MACRODANTIN 50 MG PO (09:35)
[2024-06-29] MEDS: URECHOLINE 25 MG PO (09:36)
[2024-06-29] MEDS: NAMENDA 5 MG PO (09:36)
[2024-06-29] MEDS: MIRAPEX 0.25 MG PO (09:36)
[2024-06-29] MEDS: MIRALAX 17 GRAMS PO (09:37)
[2024-06-29 12:24] VITALS: O2SAT 98
--- NOTE | 2024-06-29 12:48 | W.DS.TRANS ---
DC Summary - M[facility] Roller
-
Discharge Instructions:
Discharge Diagnosis/Procedures covid-19 and weakness
Diet Regular
Activity As tolerated
Driving Restrictions No driving
Bathing Restrictions None
Other Services PT,OT,VN
Instructions:
Stand-Alone Forms:
Changes to Home Medications: No
Discharge Medications:
DC Medications w/original date entered in [facility]
carbidopa 25 mg-levodopa 100 mg tablet 1 tab PO BID@0700,1500 parkinson's 09/24/23
losartan 50 mg tablet 50 mg PO DAILY Blood Pressure 09/24/23
memantine 7 mg capsule sprinkle,extended release 24hr 7 mg PO DAILY memory 09/24/23
pantoprazole 40 mg tablet,delayed release 40 mg PO DAILY #30 tabs 10/06/23
polyethylene glycol 3350 17 gram oral powder packet (HealthyLax) 17 g PO DAILY #30 ea 10/06/23
pramipexole 0.25 mg tablet 0.25 mg PO DAILY restless leg 10/11/23
finasteride 5 mg tablet 5 mg PO DAILY Urinary Issue 03/23/24
tamsulosin 0.4 mg capsule 0.4 mg PO DAILY Urinary Issue 03/23/24
bethanechol chloride 25 mg tablet 25 mg PO BID Urinary Issue 06/27/24
menthol 4 % topical gel (Biofreeze (menthol)) 1 applic topical QID MUSCLE ACHES 06/27/24
nitrofurantoin macrocrystal 50 mg capsule 50 mg PO DAILY UTI 06/27/24
simvastatin 20 mg tablet 20 mg PO HS High Cholesterol 06/27/24
Home Medication Changes
Pending Results: No
--- NOTE | 2024-06-29 12:49 | W.DCSUMMARY ---
Discharge Summary
Discharge Data
Date of Admission: 06/27/24
Date of Discharge: 06/29/24
-
Pending Results: No
Hospital Course
Discharging Physician : Dr. Syl Jones
Disposition : Back to Memory Care with
Principal Discharge diagnosis : Weakness and Covid-19
Hospital Course :
Mr. Ayden Mott is a 84 yo man with hx AAA, Parkinson's, dementia, ambulatory dysfunction was brought to the ER after found down by staff at [facility]. Patient has dementia and unable to give further history. Triage vitals significant for T
100.9. WBC 5.1 and lactate normal. He was found to be covid +. Patient was admitted to observation. He never required oxygen. He improved with physical therapy and is discharged back to his memory care unit.
No changes made to medications.
Time spent on discharge 31 minutes.
Important imaging findings :
HEAD CT 06/27/[address]
IMPRESSION:
No acute intracranial abnormality.
No acute abnormalities within the cervical spine.
Multilevel cervical spondylosis.
CXR 06/27/24
IMPRESSION:
No radiographic evidence of acute cardiopulmonary abnormality.
Procedure findings :
Discharge Plan
-
Patient Disposition: Home with Home Care
Discharge Diagnosis/Procedures: covid-19 and weakness
Diet: Regular
Activity: As tolerated
Driving Restrictions: No driving
Bathing Restrictions: None
Other Services: VN, PT and OT
Referrals:
UNKNOWN - PT DOES,NOT KNOW [Family Provider] - in less than 1 week
Prescriptions:
Continued
losartan 50 mg tablet
50 mg PO DAILY
carbidopa-levodopa 25-100 mg tablet
1 tab PO BID@0700,1500
memantine 7 mg capsule,sprinkle,ER 24hr
7 mg PO DAILY
polyethylene glycol 3350 [HealthyLax] 17 gram Powder In Packet
17 g PO DAILY Qty: 30 0RF
pantoprazole 40 mg Tablet,Delayed Release (Dr/Ec)
40 mg PO DAILY Qty: 30 0RF
pramipexole 0.25 mg Tablet
0.25 mg PO DAILY
tamsulosin 0.4 mg Capsule
0.4 mg PO DAILY
finasteride 5 mg Tablet
5 mg PO DAILY
nitrofurantoin macrocrystal 50 mg Capsule
50 mg PO DAILY
bethanechol chloride 25 mg Tablet
25 mg PO BID
simvastatin 20 mg Tablet
20 mg PO HS
Biofreeze (menthol) 4 % Gel
1 applic TOPICAL QID
Discharge Orders:
Discharge Patient (As Directed); Ordered 06/29/24
Ordered By: Syl Jones
Discharge Date and Time
Print Language: GEORGIAN
--- NOTE | 2024-06-29 13:06 | CM ---
Patient has been medically cleared for discharge back to [facility] Care unit with [facility] VN and [facility]OT. [facility] will schedule therapy with [facility]. Son, Wayne, will transport to [facility].
NURSE TO NURSE REPORT # [phone] Kathryn
FAX # [phone]
[facility] FAX # [phone]
--- NOTE | 2024-06-29 13:23 | PTCARENOTE ---
This RN called report to Kathryn at [facility] at 1320. Updates given, son will be here to pick him up at 1400.
[2024-06-29 13:30] VITALS: BP 165/77
== END 2024-06-29 14:27 | disposition home health service (06) ==
LOC: 2 NORTH 16:29
PROVIDERS: Physician Assistant; ADMITTING PHYSICIAN Student in an Organized Health Care Education/Training Program; EMERGENCY PHYSICIAN Student in an Organized Health Care Education/Training Program
DX: U07.1 COVID-19 (principal); G92.8 Other toxic encephalopathy; R53.1 Weakness; R53.83 Other fatigue; W06.XXXA Fall from bed, initial encounter; Y93.89 Activity, other specified; R26.2 Difficulty in walking, not elsewhere classified; M47.812 Spondylosis without myelopathy or radiculopathy, cervical region; Y92.092 Bedroom in other non-institutional residence as the place of occurrence of the external cause; G20.A1 Parkinson's disease without dyskinesia, without mention of fluctuations; F02.80 Dementia in other diseases classified elsewhere, unspecified severity, without behavioral disturbance, psychotic disturbance, mood disturbance, and anxiety; I10 Essential (primary) hypertension; N40.0 Benign prostatic hyperplasia without lower urinary tract symptoms; E78.00 Pure hypercholesterolemia, unspecified; K21.9 Gastro-esophageal reflux disease without esophagitis; H35.30 Unspecified macular degeneration; Z86.79 Personal history of other diseases of the circulatory system; Z90.49 Acquired absence of other specified parts of digestive tract; Z66 Do not resuscitate
CPT/HCPCS: 70450; 71046; 72125; 80048; 80053; 81003; 81015; 82550; 83605; 83735; 83880; 85025; 87070; 87811; 93005; 97116; 97163; 97166; 97530; 97535; 99285; G0378

== ENCOUNTER 2024-09-22 01:47 | Emergency (ER) | payer MEDICARE, BC, SELFPAY ==
[2024-09-22 01:50] VITALS: BP 162/84; BMI 27.6
[2024-09-22 02:00] VITALS: BP 157/75
--- NOTE | 2024-09-22 02:42 | ED.GENMED ---
History of Present Illness
<CLAUDIA Lopez - Last Filed: 09/22/24 05:55>
General
Chief Complaint: Fall
Source: patient
Exam Limitations: dementia
Time Seen by Provider: 09/22/24 02:23
Nursing documentation reviewed up to this point in time: agreed with
History of Present Illness
History of Present Illness:
Patient is a 84yo M w/ dementia who presents to ED via EMS after unwitnessed fall. Pt has bleeding laceration to top of head. Pt believes he hit his head on the floor and did not lose consciousness. He reports a lot of bleeding at time of injury.
States that he did not get help until 5-10 mins after fall. He admits to minor head ache. He denies dizziness, vision changes, N/V, and other body pain.
Past History
<CLAUDIA Lopez - Last Filed: 09/22/24 05:55>
Past History
ED Past Medical History: GERD, HTN, Hypercholesterolemia and Other (Prostatic hypertrophy, macular degeneration, bilateral hearing aids)
ED Past Surgical History: Cholecystectomy
Social History
Personal:
Living: with family
Employment: Retired
Review of Systems
<CLAUDIA Lopez - Last Filed: 09/22/24 05:55>
Review of Systems
Constitutional: Denies fever, fatigue or chills
Respiratory: Denies cough or trouble breathing
Cardiac: Denies chest pain or palpitations
ABD/GI: Denies abdominal pain, nausea, vomiting, diarrhea or constipated
Musculoskeletal: Denies joint pain, muscle pain, neck pain or back pain
Neurological: Reports headache; Denies dizzy
Phy Exam
<CLAUDIA Lopez - Last Filed: 09/22/24 05:55>
General Physical Exam
General Presentation: mild distress
General age: appears stated age
General Skin: warm and dry
General Habitus: elderly
General Mental: alert
Eye Exam
Eye Exam: PERRL
Cardiovascular Exam
Cardiovascular Exam: regular rate/rhythm, no edema, no gallop and no murmur
Pulmonary Exam
Pulmonary Exam: lungs clear, no respiratory distress, no rales, no crackles, no rhonchi and no wheezing
Gastrointestinal Exam
Gastrointestinal Exam: normal bowel sounds, non tender, soft, no organomegaly, no pulsatile mass and non distended
Neurological Exam
Neurological Exam: alert and speech normal
Musculoskeletal Exam
Musculoskeletal Exam: full ROM, edema and other (no tenderness to palpation of BL UE & LE. )
Course
<ST JohnPA - Last Filed: 09/22/24 05:55>
Orders/Labs/Results
Orders:
Orders
09/22/24 02:03
CT Head W/o Iv Contrast Urgent
Comment:
Reason For Exam: head injury
Vital Signs
Initial and Last Documented VS:
Initial Vital Signs
Temp Pulse Resp BP Pulse Ox
98.2 F 58 16 162/84 98
09/22/24 01:50 09/22/24 01:50 09/22/24 01:50 09/22/24 01:50 09/22/24 01:50
Last Documented Vital Signs
Temp Pulse Resp BP Pulse Ox
98.2 F 53 16 155/102 97
09/22/24 01:50 09/22/24 04:00 09/22/24 04:00 09/22/24 04:00 09/22/24 04:00
<Philip Ross DO - Last Filed: 09/22/24 05:43>
Orders/Labs/Results
Orders:
Orders
09/22/24 02:03
CT Head W/o Iv Contrast Urgent
Comment:
Reason For Exam: head injury
Vital Signs
Initial and Last Documented VS:
Initial Vital Signs
Temp Pulse Resp BP Pulse Ox
98.2 F 58 16 162/84 98
09/22/24 01:50 09/22/24 01:50 09/22/24 01:50 09/22/24 01:50 09/22/24 01:50
Last Documented Vital Signs
Temp Pulse Resp BP Pulse Ox
98.2 F 53 16 155/102 97
09/22/24 01:50 09/22/24 04:00 09/22/24 04:00 09/22/24 04:00 09/22/24 04:00
Procedures
<CLAUDIA Lopez - Last Filed: 09/22/24 05:55>
Laceration Closure
Anterior Head:
Status of Wound: clean
Size of Wound in cm: 4
Description of Wound Edges: sharp
Preparation: cleaned with saline
Revision/Debridement: routine- no revision
Type of Closure: single layer closure
Skin Closure Material: skin ayla
<Philip Ross DO - Last Filed: 09/22/24 05:43>
Laceration Closure
Scalp:
Status of Wound: clean
Size of Wound in cm: 7
Description of Wound Edges: sharp and surrounded by abrasion
Preparation: cleaned with saline
Revision/Debridement: routine- no revision
Wound exploration: explored to base- no FB
Type of Closure: single layer closure
Skin Closure Material: skin ayla
Number of sutures: 7
<CLAUDIA Lopez - Last Filed: 09/22/24 05:55>
MDM/Problems Addressed
Differential Diagnosis Includes:
Intracranial hemorrhage, contusion, superficial laceration
<Philip Ross DO - Last Filed: 09/22/24 05:43>
MDM/Problems Addressed
Differential Diagnosis Includes:
Intracranial hemorrhage,
MDM/Problems Addressed:
84-year-old male with scalp laceration, unwitnessed fall. C-shaped laceration repaired with ayla.
Chronic conditions affecting care: Neurological disorder (Parkinson's, dementia)
Acute Exacerbation and/or Progression of Chronic Illness: Neurological disorder (Parkinson's, dementia)
<CLAUDIA Lopez - Last Filed: 09/22/24 05:55>
*Critical Care Note
Total Time (30-74mins, 75-104mins- exclusive of procedures): Not Applicable
<Philip Ross DO - Last Filed: 09/22/24 05:43>
*Radiology
Radiology exam reviewed: radiology read reviewed (CT head no acute findings)
*Pulse Oximetry
Patient hypoxic: no
<Philip Ross DO - Last Filed: 09/22/24 05:43>
Patient Management
Escalation/DeEscalation of care consider admission/obs:
admit not indicated
ED Attending Note
<CLAUDIA Lopez - Last Filed: 09/22/24 05:55>
-
Portions of this chart may have been created with voice recognition software.� Occasional wrong word or��sound alike� substitutions may have occurred due to the inherent limitations of voice recognition software.
<Philip Ross DO - Last Filed: 09/22/24 05:43>
ED Attending Note
Patient seen and examined by attending physician: Yes
I performed a history and physical exam of patient and discussed management with resident, I reviewed resident's note and agree with documented findings and plan of care.: Yes
ED Attending Note:
I reviewed and agree with history and treatment plan by Heather Angeles. My exam revealed
Physical Exam
General: no apparent distress, not acutely ill
Neck: supple. no meningeal signs. normal posterior pharynx
Heart: s1/s2 regular rate and rhythm, no murmur. equal radial
pulses.
HEENT: Pupils equal round reactive to light, EOMI
Lungs: no acute respiratory distress. clear bilaterally
Abdomen: normal bowel sounds. not tender. no CVAT
Neuro: alert and oriented to person and place. no focal neurological deficits cranial nerves II through XII intact
Skin: no rash, scalp laceration C-shaped 7 cm
Psychiatric: well kept. interactive and cooperative
Extremities: no edema. no calf tenderness. negative homans. good distal pulses
Discharge Plan
Departure
Patient Disposition: Home (Routine Discharge)
Date of Disposition: 09/22/24
Time of Disposition: 05:38
Patient with high blood pressure during this ER visit?: Yes
Condition: Good
Discharge Problem:
Laceration of scalp, Fall
Instructions: Laceration Repair With [place] (DC), Preventing falls in adults, BLOOD PRESSURE
Prescriptions:
No Action
losartan 50 mg tablet
50 mg PO DAILY
carbidopa-levodopa 25-100 mg tablet
1 tab PO BID@0700,1500
memantine 7 mg capsule,sprinkle,ER 24hr
7 mg PO DAILY
polyethylene glycol 3350 [HealthyLax] 17 gram Powder In Packet
17 g PO DAILY Qty: 30 0RF
pantoprazole 40 mg Tablet,Delayed Release (Dr/Ec)
40 mg PO DAILY Qty: 30 0RF
pramipexole 0.25 mg Tablet
0.25 mg PO DAILY
finasteride 5 mg Tablet
5 mg PO DAILY
nitrofurantoin macrocrystal 50 mg Capsule
50 mg PO DAILY
bethanechol chloride 25 mg Tablet
25 mg PO BID
simvastatin 20 mg Tablet
20 mg PO HS
Biofreeze (menthol) 4 % Gel
1 applic TOPICAL QID
Referrals:
Shell Abel DO [Family Provider] - Call in 1-3 days for appt
Interventions
Interventions:
*Risk Screen - Suicide Last Done: 09/22/24 01:50
*General Assessment Last Done: 09/22/24 01:50
*Neglect/Abuse Screening Last Done: 09/22/24 01:50
*ED COVID-19 Vaccine History Last Done: 09/22/24 01:50
ED-Musculoskeletal Assessment Last Done: 09/22/24 02:02
ED- Neurological Assessment Last Done: 09/22/24 02:02
ED-Skin Assessment Last Done: 09/22/24 02:02
Discharge Date and Time
Print Language: YI
Assessment and Plan (No Qualifiers)
<CLAUDIA Lopez - Last Filed: 09/22/24 05:55>
Assessment and Plan
(1) Laceration of scalp:
Status: Acute
Comment:
about 4 cm C-shaped laceration, CT head ruled out any intracranial bleeding
Plan:
repaired laceration w/ 7 ayla
follow up w/ PCP in 5-7 days for staple removal
<Philip Ross DO - Last Filed: 09/22/24 05:43>
Assessment and Plan
(1) Laceration of scalp:
[2024-09-22 03:00] VITALS: BP 155/99
[2024-09-22 04:00] VITALS: BP 155/102
== END 2024-09-22 06:13 | disposition home or self-care (01) ==
LOC: EMR 01:47
PROVIDERS: EMERGENCY PHYSICIAN Emergency Medicine; FAMILY PHYSICIAN Hospitalist
DX: S01.01XA Laceration without foreign body of scalp, initial encounter (principal); R51.9 Headache, unspecified; W19.XXXA Unspecified fall, initial encounter; I10 Essential (primary) hypertension; K21.9 Gastro-esophageal reflux disease without esophagitis; E78.00 Pure hypercholesterolemia, unspecified; N40.0 Benign prostatic hyperplasia without lower urinary tract symptoms; H35.30 Unspecified macular degeneration; F02.80 Dementia in other diseases classified elsewhere, unspecified severity, without behavioral disturbance, psychotic disturbance, mood disturbance, and anxiety; G20.A1 Parkinson's disease without dyskinesia, without mention of fluctuations; I71.40 Abdominal aortic aneurysm, without rupture, unspecified; Z90.49 Acquired absence of other specified parts of digestive tract
CPT/HCPCS: 99284; 12002; 70450

== ENCOUNTER 2024-10-15 17:47 | Observation (INO) | payer MEDICARE, BC, SELFPAY ==
[2024-10-15] VITALS (8 sets, daily range): BP systolic 130–182; BP diastolic 70–90; BMI 26.7; BMI 25.6
--- NOTE | 2024-10-15 14:02 | EDRN ---
Dr. Elliott in to see pt at this time.
--- NOTE | 2024-10-15 14:13 | ED.GENMED ---
History of Present Illness
General
Chief Complaint: Fall
Source: patient
Exam Limitations: none
Time Seen by Provider: 10/15/24 11:49
Nursing documentation reviewed up to this point in time: agreed with
History of Present Illness
History of Present Illness:
The patient is an 84-year-old man with a past medical history of dementia who arrives from a memory care unit after having an unwitnessed fall that occurred last night. Patient presents with significant bruising of his right forehead and right
periorbital area. He does not remember falling and is a poor historian. He denies specific pain. His son is at the bedside and reports that over the last week, he seems more weak
Past History
Past History
ED Past Medical History: GERD, HTN, Hypercholesterolemia and Other (Prostatic hypertrophy, macular degeneration, bilateral hearing aids)
ED Past Surgical History: Cholecystectomy
Social History
Personal:
Living: with family
Employment: Retired
Family History
Family History: Other
Review of Systems
Review of Systems
Allergies reviewed?: Yes
Unable to obtain full review of systems at this time due to: dementia
Other source history: family (Son who is at the bedside)
All Other Systems: Not applicable (History of dementia, limited historian)
Phy Exam
Physical Exam
Physical Exam:
Physical Exam
General: no apparent distress, not acutely ill. Right periorbital ecchymoses. Right globe appears normal
Neck: supple. Nontender
Heart: s1/s2 regular rate and rhythm,
Lungs: no acute respiratory distress. clear bilaterally
Abdomen: normal bowel sounds. not tender. no CVAT
Neuro: alert. Oriented to self only. Nonfocal
Skin: Abrasion right forehead
Psychiatric: well kept. interactive and cooperative
Extremities: Atraumatic upper and lower extremities.
Course
Orders/Labs/Results
Orders:
Orders
10/15/24 14:13
CT Facial Bones W/o Iv Contras Urgent
Comment:
Reason For Exam: fall
CT Head W/o Iv Contrast Urgent
Comment:
Reason For Exam: fall
10/15/24 14:17
Electrocardiogram (*1) Urgent
Reason for Study: Other
Other Reason for Exam: fall
EKG- Treatment ONCE
10/15/24 15:13
Urinalysis Reflex To Culture Urgent
Date Specimen was Collected: 10/15/24
Time Specimen was Collected: 15:12
Urine Microscopic Reflex Cult Urgent
Urine Culture Urgent
DEBORA Source: U
Specimen Description:
Date Specimen was Collected: 10/15/24
Time Specimen was Collected: 15:12
10/15/24 16:16
Complete Blood Count/With Diff Urgent
Comprehensive Metabolic Panel Urgent
10/15/24 16:17
CefTRIAXone [Rocephin] 1,000 mg IV NOW STA
Abnormal Lab Results
10/15/24
15:13
Urine Ketones Trace A
(Negative)
Leukocyte Esterase Rfl 1+ A
(Negative)
Urine WBC (Reflex) >100 A /HPF
(0-5)
Urine Bacteria (Reflex) Many A
(Negative)
Vital Signs
Initial and Last Documented VS:
Initial Vital Signs
Temp Pulse Resp BP Pulse Ox
97.9 F 64 16 167/83 96
10/15/24 11:25 10/15/24 11:25 10/15/24 11:25 10/15/24 11:25 10/15/24 11:25
Last Documented Vital Signs
Temp Pulse Resp BP Pulse Ox
97.9 F 57 16 182/87 96
10/15/24 11:25 10/15/24 15:00 10/15/24 15:00 10/15/24 13:00 10/15/24 15:00
MDM/Problems Addressed
Differential Diagnosis Includes:
Subdural hematoma, Rohan orbital wall fracture, UTI
MDM/Problems Addressed:
Patient arrives after an unwitnessed fall from last night, arriving with acute swelling around right eye
*Radiology
Radiology exam reviewed: radiology read reviewed
*Pulse Oximetry
Patient hypoxic: no
*EKG
Interpreted by ED Provider?: Yes
Interpretation: abnormal
Comparison EKG: no changes
Rate: bradycardiac
Rhythm: sinus
[place]: left axis deviation
Interval: normal interval
QRS Pattern: normal QRS
Ischemia: non-specific ST changes
*Pet Technologist Interpretation
Rate: normal
Interpretation: normal
Rhythm: sinus
*Critical Care Note
Total Time (30-74mins, 75-104mins- exclusive of procedures): Not Applicable
Data Reviewed
Review of Other/Old Records Reveals: Discharge Summary (Discharge summary reviewed from hospitalist from 06/2024 when patient was admitted for generalized weakness and COVID-positive)
Source: patient and family
Patient Management
Social determinants of health affecting care: Living situation
Discussion with other providers: Hospitalist
ED Attending Note
-
Portions of this chart may have been created with voice recognition software.� Occasional wrong word or��sound alike� substitutions may have occurred due to the inherent limitations of voice recognition software.
Discharge Plan
Departure
Patient Disposition: Admit
Date of Disposition: 10/15/24
Time of Disposition: 16:18
Admit to: Med/Surg
Presentation/result/management discussed w/ accepting MD/DO: Hospitalist
Condition: Good
Covid-19: Not Applicable
Discharge Problem:
Acute UTI, Closed head injury, Generalized weakness
Prescriptions:
No Action
losartan 50 mg tablet
50 mg PO DAILY
carbidopa-levodopa 25-100 mg tablet
1 tab PO BID@0700,1500
memantine 7 mg capsule,sprinkle,ER 24hr
7 mg PO DAILY
polyethylene glycol 3350 [HealthyLax] 17 gram Powder In Packet
17 g PO DAILY Qty: 30 0RF
pantoprazole 40 mg Tablet,Delayed Release (Dr/Ec)
40 mg PO DAILY Qty: 30 0RF
pramipexole 0.25 mg Tablet
0.25 mg PO DAILY
finasteride 5 mg Tablet
5 mg PO DAILY
nitrofurantoin macrocrystal 50 mg Capsule
50 mg PO DAILY
bethanechol chloride 25 mg Tablet
25 mg PO BID
simvastatin 20 mg Tablet
20 mg PO HS
Biofreeze (menthol) 4 % Gel
1 applic TOPICAL QID
Referrals:
UNKNOWN,NO INTERVIEW [Family Provider] -
Interventions
Interventions:
*Risk Screen - Suicide Last Done: 10/15/24 11:41
*General Assessment Last Done: 10/15/24 11:38
*Neglect/Abuse Screening Last Done: 10/15/24 11:41
*ED COVID-19 Vaccine History Last Done: 10/15/24 11:38
ED-Musculoskeletal Assessment Last Done: 10/15/24 11:41
ED- Neurological Assessment Last Done: 10/15/24 11:41
ED-Skin Assessment Last Done: 10/15/24 11:41
Discharge Date and Time
Print Language: YI
--- NOTE | 2024-10-15 14:25 | EDRN ---
[facility] ED PCT cleansed head abrasion extensively w/ Saline then applied double antibiotic ointment to abrasion on R forehead.
[2024-10-15 15:25] LABS: Urine Albumin Trace (Neg - Trace); Urine Bilirubin Negative (Negative); Urine Character Clear (Clear); Urine Color Yellow; Urine Glucose Negative (Negative); Urine Ketone Trace (Negative); Urine Leukocyte 1+ (Negative); Urine Nitrite Negative (Negative); Urine Occult Blood Negative (Negative); Urine Urobilinogen 1+ (Neg - 1+)
[2024-10-15 15:51] LABS: Urine Amorphous Seen; Urine Bacteria Many (Negative); Urine Red Blood Cell 0-2 /HPF (0-2); Urine Squamous Cell 0-2 /LPF (Few); Urine White Cell >100 /HPF (0-5)
--- NOTE | 2024-10-15 16:13 | EDRN ---
Dr. Elliott just informed me and is informing pt and son that pt will be admitted for UTI.
--- NOTE | 2024-10-15 16:24 | HPS.HSE ---
Family Physician
-
Family Physician: NO INTERVIEW UNKNOWN
Chief Complaint
-
fall
History of Present Illness
Patient is a 84-year-old male with past medical history of Parkinson's, dementia, CAD, HTN, GERD, and BPH who presented to [place] ED for evaluation following an unwitnessed fall this morning. Patient arrived from memory care unit. Patient is
hard of hearing and poor historian. Son at bedside was able to provide some background. Son states that patient has had a general decline over past week, of decreased fluid intake and generalized weakness. Patient generally walks with walker but
will forego using when in his room resulting in falls. Patient has similar declines with previous UTIs but normally happens quicker than this time. Son states he is not aware of any associated symptoms other than the generalized weakness.
Medical History
Past Medical History
Past Medical History: Reports Other
Additional Past Medical History:
Parkinson's
Dementia
CAD
HTN
GERD
BPH
Past Surgical History: Reports Other
Additional Past Surgical History:
Robotic partial prostatectomy and cystolithotomy (09/28/2023)
CABG
Cholecystectomy
Cataract repair
Social History
Tobacco: Former Smoker (quit 40 years ago)
Alcohol: None
Drug: None
Personal: Single
Living: Other (Memory care unit)
Employment: Retired
Family History
Family History: Not pertinent
Allergies / Home Medications
Allergies reflects when Allergies were last updated in [facility].
Home Medications with original date entered in [facility]
Allergy/Medication List:
Allergies
Allergy/AdvReac Type Severity Reaction Status Date / Time
No Known Allergies Allergy Verified 10/15/24 11:34
Home Medications
carbidopa 25 mg-levodopa 100 mg tablet 1 tab PO BID@0700,1500 parkinson's 09/24/23
losartan 50 mg tablet 50 mg PO DAILY Blood Pressure 09/24/23
memantine 7 mg capsule sprinkle,extended release 24hr 7 mg PO DAILY memory 09/24/23
pantoprazole 40 mg tablet,delayed release 40 mg PO DAILY #30 tabs 10/06/23
polyethylene glycol 3350 17 gram oral powder packet (HealthyLax) 17 g PO DAILY #30 ea 10/06/23
pramipexole 0.25 mg tablet 0.25 mg PO DAILY restless leg 10/11/23
finasteride 5 mg tablet 5 mg PO DAILY Urinary Issue 03/23/24
bethanechol chloride 25 mg tablet 25 mg PO BID@0800,1500 Urinary Issue 06/27/24
menthol 4 % topical gel (Biofreeze (menthol)) 1 applic topical QID MUSCLE ACHES 06/27/24
nitrofurantoin macrocrystal 50 mg capsule 50 mg PO DAILY UTI 06/27/24
simvastatin 20 mg tablet 20 mg PO HS High Cholesterol 06/27/24
Review of Systems
-
Unable to obtain full review of systems at this time due to: Dementia
History Source: Family
Constitutional: Reports No Symptoms
EENT: Reports No Symptoms
Respiratory: Reports No Symptoms
Cardiac: Reports No Symptoms
Abdomen/GI: Reports No Symptoms
: Reports No Symptoms
Musculoskeletal: Reports No Symptoms
Skin: Reports No Symptoms
Neurological: Reports Weakness
Endocrine: Reports No Symptoms
Hematologic/Lymphatic: Reports No Symptoms
Psych: Reports No Symptoms
Physical Exam
Vital Signs
Vital Signs
Temp Pulse Resp BP Pulse Ox
97.9 F 57 16 182/87 96
10/15/24 11:25 10/15/24 15:00 10/15/24 15:00 10/15/24 13:00 10/15/24 15:00
Physical Exam
General: Well Developed, Well Nourished, No Apparent Distress and Comfortable
HEENT: NormoCephalic, Moist mucous membranes, Atraumatic, [place] Conjunctivae, Nose Appears Normal, Ears Appear Normal, Hearing Impaired and Other (significant bruising and edema to right periorbital )
Respiratory: Clear and Non Labored Respirations; No Wheezes, Rales, Rhonchi or Crackles
Cardiac: S1/S2 and Regular Rhythm; No Murmur, Rub or Gallop
Breast: Deferred by me
GI: Soft, Non Tender, Non Distended and Normal Bowel Sounds; No Organomegaly
Rectal: Deferred by Provider
Genito-urinary: Deferred by me
Musculoskeletal: No Clubbing, No Cyanosis and No Edema
Skin: Warm, Dry, IV/Catheter Site and Other; No Rash
Neuro: Awake
Psych: Calm
Laboratory Results
-
10/15/24 16:30
10/15/24 16:30
Laboratory Results
Total Bilirubin 1.3 mg/dl (0.2-1.3) 10/15/24 16:30
AST 24 U/L (17-59) 10/15/24 16:30
ALT 23 U/L (0-50) 10/15/24 16:30
Alkaline Phosphatase 62 U/L (38-126) 10/15/24 16:30
Data Reviewed
-
CT Scan: Report Reviewed by me (Head/Facial: No facial bone fracture. Right preseptal periorbital soft tissue swelling/contusion that extend superiorly to involve the right paracentral frontal scalp. No acute intracranial hemorrhage or extra-axial
collection.)
Medical Tests (Nuc Med, Echo, EKG etc): Report Reviewed by me (EKG: SINUS BRADYCARDIA OTHERWISE NORMAL ECG)
Lab Data: Labs Reviewed by me (BUN 26)
Impression/Plan
-
IMPRESSION/PLAN:
#UTI vs. Adult failure to thrive vs. general deconditioning of dementia
- s/p unwitnessed fall with right periorbital swelling and contusion
- described generalized decline over last week with decreased fluid intake and increased weakness
- Urine Cx pending
- Admit to M/S for observation
- IV Rocephin in ED
- PT/OT Consult
#Parkinson's
- continue carbidopa-levodopa and pramipexole
#Dementia
- continue memantine
#CAD
- continue simvastatin
#HTN
- continue losartan
#GERD
- continue pantoprazole
#BPH
- continue bethanechol chloride and finasteride
DNR
DVT Px: SCDs
[2024-10-15] MEDS: ROCEPHIN 1000 MG IV (16:40)
[2024-10-15 16:43] LABS: % Basophils 0.7 % (0-2); % Eosinophils 1.6 % (0-6); % Immature Granulocytes 0.4 % (0-0.5); % Monocytes 10.6 % (1.7-9.3); % Neutrophils 64.7 % (42.2-75.2); Absolute Eosinophils 0.1 10^3/uL (0-0.7); Absolute Lymphocytes 1.3 10^3/uL (1.2-3.4); Absolute Monocytes 0.6 10^3/uL (0.1-0.6); Absolute Neutrophils 3.7 10^3/uL (1.4-6.5); Hematocrit 41.2 % (39.0-52.0); Mean Corpuscular Hgb 32.3 pg (27.0-31.0); Mean Corpuscular Volume 94.9 fL (80.0-94.0); Mean Platelet Volume 9.5 fL (7.4-10.4); Nucleated Red Blood Cells % 0 % (-); Platelet Count 159 10^3/uL (130-400); Red Blood Cell Count 4.34 10^6/uL (4.70-6.10); Red Cell Dist. Width 12.5 % (11.5-14.5); White Blood Cell Count 5.7 10^3/uL (4.8-10.8)
--- NOTE | 2024-10-15 16:45 | EDRN ---
Christy MEAED w/ hospitalist group in room w / pt at this time.
[2024-10-15 17:01] LABS: ALT (SGPT) 23 U/L (0-50); AST (SGOT) 24 U/L (17-59); Albumin 3.7 g/dl (3.5-5.0); Alkaline Phosphatase 62 U/L (38-126); Blood Urea Nitrogen 26 mg/dl (9-20); Calcium 9.1 mg/dl (8.4-10.2); Carbon Dioxide 26 mmol/L (22-30); Chloride 107 mmol/L (98-107); Estimated Creatinine Clearance 54 ml/min; Glucose 91 mg/dl (70-99); Potassium 3.9 mmol/L (3.5-5.1); Sodium 139 mmol/L (135-145); Total Bilirubin 1.3 mg/dl (0.2-1.3); Total Protein 6.5 g/dl (6.3-8.2); eGFR > 60.00
--- NOTE | 2024-10-15 17:09 | W.PN.UPDATE ---
Update Note
Progress Note Update
I saw and examined the patient.
The TECHNICAL LABORATORY ASST or PA's note was reviewed and I agree with the note.
Comment: 84-year-old male who presents with generalized weakness and a fall yesterday.
159/78, 56, 14, 97.9 F, 96% RA
Gen: NAD, Awake and alert but not oriented, R forehead contusion
Eyes: EOMI, PERRLA, no scleral icterus.
Neck: supple.
CV: RRR, +S1/S2, no m/r/g.
Resp: CTAB, no rales, wheezes, or rhonchi.
Abd: +BS, soft, NT, ND
Skin: No rashes.
Neuro: CN 2-12 intact, non-focal.
Psych: Normal mood and affect.
Lab Results
10/15/24 10/15/24
15:13 16:30
WBC 5.7
RBC 4.34 L
Hgb 14.0
Hct 41.2
MCV 94.9 H
MCH 32.3 H
MCHC 34.0
RDW 12.5
Plt Count 159
MPV 9.5
Abs Immat Gran (auto) 0.0
Absolute Neuts (auto) 3.7
Absolute Lymphs (auto) 1.3
Absolute Monos (auto) 0.6
Absolute Eos (auto) 0.1
Absolute Basos (auto) 0.0
Immature Gran % 0.4
Neutrophils % 64.7
Lymphocytes % 22.0
Monocytes % 10.6 H
Eosinophils % 1.6
Basophils % 0.7
Nucleated RBC % 0
Sodium 139
Potassium 3.9
Chloride 107
Carbon Dioxide 26
BUN 26 H
Creatinine 1.1
Estimated Creat Clear 54
eGFR > 60.00
Glucose 91
Calcium 9.1
Total Bilirubin 1.3
AST 24
ALT 23
Alkaline Phosphatase 62
Total Protein 6.5
Albumin 3.7
Urine Color Yellow
Urine Clarity Clear
Urine pH 6.0
Ur Specific [place] 1.020
Urine Ketones Trace A
Ur Occult Blood Reflex Negative
Urine Nitrite (Reflex) Negative
Urine Bilirubin Negative
Urine Urobilinogen 1+
Leukocyte Esterase Rfl 1+ A
Urine RBC 0-2
Urine WBC (Reflex) >100 A
Ur Squamous Epith Cells 0-2
Amorphous Crystals Seen
Urine Bacteria (Reflex) Many A
Urine Glucose Negative
Urine Albumin (Reflex) Trace
Weakness and fall:
-likely due to deconditioning in the setting of dementia
-U/A ordered on admission yet pt without fever or leukocytosis. Pyuria noted and Rocephin given by the ER. Will follow urine culture more than likely if the urine culture is positive, the patient remains without fever or leukocytosis, this could
simply be asymptomatic bacteriuria.
-monitor off antibiotic therapy
-PT/OT/CM
-Considering patient's advanced dementia would be reasonable to discuss goals of care with the patient's family. c/s palliative care.
Parkinson's disease: Continue Sinemet, Namenda
BPH: cont Finasteride
Essential hypertension: cont ARB
HLD: cont statin
--- NOTE | 2024-10-15 17:23 | EDRN ---
Dr. Carvajal in to see pt at this time.
--- NOTE | 2024-10-15 18:24 | EDRN ---
Pt was incontinent of urine when attempting to use urinal at this time. Pt was changed and given isamar care.
--- NOTE | 2024-10-15 19:45 | PTCARENOTE ---
Pt arrived to room 437-01. Pt transferred from stretcher to bed. Pt AAO-self, VSS. Pt oriented to room, call ham placed within reach. Bed alarm placed.
[2024-10-15] MEDS: LIPITOR 10 MG PO (21:17)
[2024-10-15] MEDS: TYLENOL 650 MG PO (21:18)
[2024-10-16] MEDS: SINEMET 25-100 1 TABLET PO ×2 (06:24→15:25)
[2024-10-16 07:00] VITALS: BP 165/92
[2024-10-16 07:34] LABS: Hematocrit 44.8 % (39.0-52.0); Hemoglobin 15.1 g/dL (13.0-18.0); Mean Corp Hgb Conc. 33.7 g/dL (33.0-37.0); Mean Corpuscular Hgb 32.8 pg (27.0-31.0); Mean Corpuscular Volume 97.4 fL (80.0-94.0); Mean Platelet Volume 9.9 fL (7.4-10.4); Platelet Count 150 10^3/uL (130-400); Red Cell Dist. Width 12.4 % (11.5-14.5); White Blood Cell Count 5.5 10^3/uL (4.8-10.8)
[2024-10-16 08:06] LABS: Blood Urea Nitrogen 22 mg/dl (9-20); Calcium 9.1 mg/dl (8.4-10.2); Carbon Dioxide 30 mmol/L (22-30); Chloride 104 mmol/L (98-107); Estimated Creatinine Clearance 59 ml/min; Glucose 90 mg/dl (70-99); Sodium 142 mmol/L (135-145); eGFR > 60.00
[2024-10-16] MEDS: URECHOLINE 25 MG PO ×2 (08:21→15:25)
[2024-10-16] MEDS: MIRAPEX 0.25 MG PO (08:22)
[2024-10-16] MEDS: MACRODANTIN 50 MG PO (08:23)
[2024-10-16] MEDS: PROTONIX 40 MG PO (08:24)
[2024-10-16] MEDS: PROSCAR 5 MG PO (08:24)
[2024-10-16] MEDS: COZAAR 50 MG PO (08:24)
--- NOTE | 2024-10-16 08:52 | W.CON.PAL ---
Consultation
-
Date/Time Consultation Requested: 10/15
Date/Time Consultation Performed: 10/16
Requesting Provider: Franklin Carvajal
Performing Provider: Beverly Woodson
Reason for Consult: Goals of Care Discussion
Primary Diagnosis: dementia
Reason for Admission
Illness Course/HPI
84 year old M with PMH of Parkinson's, dementia, CAD, HTN, GERD, and BPH admitted from memory care unit following an unwitnessed fall. Per son, patient has had a general decline over past week with poor PO intake and generalized weakness. At
baseline patient walks with walker but will sometimes forget to use it and fall. Has a history of UTIs with similar presentation.
Upon arrival, +pyuria and given rocephin. Await urine culture.
Has had a few ER trips/admissions for UTIs and falls over the last few months.
Consult for GOC.
Pain & Symptom Assessment
[place] Symptom Scale 0=none, 10=worst
Pain: 0
Nausea: 0
Appetite: 0
Shortness of Breath: 0
Objective Data
-
Objective Data:
Vital Signs
Temp Pulse Resp BP Pulse Ox
97.7 F 50 20 165/92 98
10/16/24 07:00 10/16/24 07:00 10/16/24 07:00 10/16/24 07:00 10/16/24 07:00
Laboratory Results
10/16/24 06:16
10/16/24 06:16
Total Protein 6.5 g/dl (6.3-8.2) 10/15/24 16:30
Albumin 3.7 g/dl (3.5-5.0) 10/15/24 16:30
Urine Color Yellow 10/15/24 15:13
Urine Clarity Clear (Clear) 10/15/24 15:13
Urine pH 6.0 (5.0-9.0) 10/15/24 15:13
Ur Specific [place] 1.020 (<1.030) 10/15/24 15:13
Urine Ketones Trace (Negative) A 10/15/24 15:13
Urine Bilirubin Negative (Negative) 10/15/24 15:13
Palliative Performance Scale
Palliative Performance Scale:
PPS Level Ambulation Activity & Evidence of Disease Self Care Intake Conscious Level
100% Full Normal Activity & Work; Full Intake Full
No Evidence of Disease
90% Full Normal Activity & Work; Full Normal Full
Some Evidence of Disease
80% Full Normal Activity with Effort Full Normal or Full
Some Evidence of Disease Reduced
70% Reduced Unable Normal Job/Work Full Normal or Full
Significant Disease Reduced
60% Reduced Unable Hobby/Housework Occasional Normal or Full or Confusion
Significant Disease Assistance Reduced
50% Mainly Sit/Lie Unable to do Any Work Considerable Normal or Full or Confusion
Extensive Disease Assistance Req'd Reduced
40% Mainly in Bed Unable to do Most Activity Mainly Assistance Normal or Full or Drowsy;
Extensive Disease Reduced +/- Confusion
30% Totally Bed Unable to do Any Activity Total Care Normal or Full or Drowsy;
Bound Extensive Disease Reduced +/- Confusion
20% Totally Bed Bound Unable to do Any Activity Total Care Minimal to Full or Drowsy;
Extensive Disease Sips +/- Confusion
10% Totally Bed Bound Unable to do Any Activity Total Care Mouth Care Drowsy or Coma;
Extensive Disease Only +/- Confusion
0%
PPS Score Level:
Palliative Performance Score Response
Palliative Performance Score Response: 60%
Physical Exam
-
General: No Apparent Distress, Comfortable and Conversant
HEENT: Normocephalic and Other (head lacerations from previous fall )
Respiratory: Clear to Auscultation
Cardiac: Regular Rhythm
GI: Soft
Skin: Warm
Neuro: AO x 3
Psych: Confused
Assessment / Plan
-
Assessment/Plan:
84 year old M with parkinsons, dementia, recurrent UTIs admitted with a fall, possible UTI pending culture
- seen at bedside with son present. Lives at [facility], initially was in independent living when he moved here from [place] about 1.5 years ago. Memory worsened and transitioned to memory care unit 6 months ago. His memory has worsened and hes had a
few falls, but otherwise he is doing well. Per son, patient 'eats like a horse' - usually more than 3 full meals a day. No weight loss, no skin issues. Ambulatory with a walker, sometimes just forgets to use it which results in his falls. He is
getting PT at [facility].
- he is not appropriate for hospice at this time.
- thankfully he has no bothersome symptoms at this time. Discussed with son that memory care unit may have palliative care team that comes in to see people there if they were interested in pursuing now or down the line. Would like to hold off for
now.
- await urine culture then possible discharge back to [facility]
Care Reviewed
Data Reviewed
Medical Tests: I reviewed
Reviewed with: Patient and Family
[2024-10-16 09:07] VITALS: BP 189/93; PULSE 53; O2SAT 97
[2024-10-16 09:08] VITALS: BP 189/93; PULSE 53; O2SAT 97
[2024-10-16 10:08] VITALS: BMI 25.6
--- NOTE | 2024-10-16 10:23 | W.PN.HOSP.TC ---
Today's Communication/Plan
-
see plan
Assessment / Plan
Assessment / Plan
Gen: NAD, Awake and alert, R forehead contusion
Eyes: EOMI, PERRLA, no scleral icterus.
Neck: supple.
CV: remains RRR, +S1/S2, no m/r/g.
Resp: remains CTAB, no rales, wheezes, or rhonchi.
Abd: +BS, soft, NT, ND
Skin: No rashes.
Neuro: CN 2-12 intact, non-focal.
Psych: Normal mood and affect.
CT brain: No facial bone fracture. Right preseptal periorbital soft tissue swelling/contusion that extend superiorly to involve the right paracentral frontal scalp. No acute intracranial hemorrhage or extra-axial collection.
Weakness and fall:
-likely due to deconditioning in the setting of dementia
-U/A ordered on admission yet pt remains without fever or leukocytosis. Pyuria noted and Rocephin given by the ER. Will follow urine culture more than likely if the urine culture is positive it would simply represent asymptomatic bacteriuria.
-monitor off antibiotic therapy for now
-PT/OT/CM
-Considering patient's advanced dementia would be reasonable to discuss goals of care with the patient's family. Palliative care c/s placed.
Other problems:
Parkinson's disease: Continue Sinemet, Namenda
BPH: cont Finasteride
Essential hypertension: cont ARB
HLD: cont statin
DNR/SCDs (fall with facial trauma)
Anticipated Discharge: Within 24 hours
Subjective/Interval History
-
Date of Service: October 16, 2024
No new complaints.
Objective Data
-
Labs:
Laboratory Results
10/16/24
06:16
WBC 5.5
Hgb 15.1
Hct 44.8
Plt Count 150
Sodium 142
Potassium 4.0
Chloride 104
Carbon Dioxide 30
BUN 22 H
Creatinine 1.0
Glucose 90
Calcium 9.1
Vital Signs:
Vital Signs
Temp Pulse Resp BP Pulse Ox
97.7 F 50 20 165/92 98
10/16/24 07:00 10/16/24 07:00 10/16/24 07:00 10/16/24 07:00 10/16/24 07:00
I&O
10/15/24 10/16/24 10/17/24
06:59 06:59 06:59
Intake Total 480 / 480
Output Total 450 / 450
Balance 30
[2024-10-16 15:00] VITALS: BP 156/83
--- NOTE | 2024-10-16 16:21 | CM ---
account support manager reviewed patient's chart and met with patient and patient was admitted under obs, NEIL letter provided to patient and signed, patient was admitted from [facility], patient is a retired hospital mine administrator supervisor, patient
requires assist x 1 person with adl's and ambulation, patient uses a rollator or canes at [facility] usually his rollator. Patient may benefit from [facility] visting nurse services at discharge.
Pharmacy; [facility].
Plan; Return to [facility] with [facility] Visiting nurses
[phone]
[2024-10-16 23:05] VITALS: BP 135/70
[2024-10-16] MEDS: LIPITOR 10 MG PO (23:17)
--- NOTE | 2024-10-17 06:15 | DOWNTIME ---
There was a [employer] Client Er Manager Downtime on 10/17/2024 from 0100 to 10/17/2024 at 0350. Downtime documentation of patient's care, including medication administrations, has been reconciled in the electronic record per guidelines. Refer to the
patient's paper chart under the miscellaneous tab to see printed paper medication records and downtime forms.
[2024-10-17 07:38] VITALS: BP 175/85
--- NOTE | 2024-10-17 09:14 | W.PN.HOSP.TC ---
Addendum entered and electronically signed by Franklin aCrvajal MD 10/17/24 12:26:
Total time spent on d/c = 35 min. This included today's physical exam, progress note, review of laboratory and diagnostic data, preparation of discharge documents and prescriptions, and discussions about the pt's hospital course and discharge plan
with the patient and other adjunct faculty for medical terminology involved in the patient's care.
Original Note:
Today's Communication/Plan
-
d/c
Assessment / Plan
Assessment / Plan
Gen: NAD, Awake and alert, R forehead contusion
Eyes: EOMI, PERRLA, no scleral icterus.
Neck: supple.
CV: continues to remain RRR, +S1/S2, no m/r/g.
Resp: continues to remain CTAB, no rales, wheezes, or rhonchi.
Abd: +BS, soft, NT, ND
Skin: No rashes.
Neuro: remains CN 2-12 intact, non-focal.
Psych: Normal mood and affect.
CT brain: No facial bone fracture. Right preseptal periorbital soft tissue swelling/contusion that extend superiorly to involve the right paracentral frontal scalp. No acute intracranial hemorrhage or extra-axial collection.
Weakness and fall:
-likely due to deconditioning in the setting of dementia
-U/A ordered on admission yet pt remains without fever or leukocytosis. Pyuria noted and Rocephin given by the ER. UCx with 60,000 CFU Enterococcus (<100,000 CFU), likely represents colonization/asymptomatic bacteriuria. No indication for
antibiotic therapy.
-PT/OT/CM
-palliative care saw in c/s
Other problems:
Parkinson's disease: Continue Sinemet, Namenda
BPH: cont Finasteride
Essential hypertension: cont ARB
HLD: cont statin
DNR/SCDs (fall with facial trauma)
Total time spent on d/c = 31 min. This included today's physical exam, progress note, review of laboratory and diagnostic data, preparation of discharge documents and prescriptions, and discussions about the pt's hospital course and discharge plan
with the patient and other adjunct faculty for medical terminology involved in the patient's care.
Anticipated Discharge: Today
Subjective/Interval History
-
Date of Service: October 17, 2024
Objective Data
-
Vital Signs:
Vital Signs
Temp Pulse Resp BP Pulse Ox
98.6 F 56 18 175/85 98
10/17/24 07:38 10/17/24 07:38 10/17/24 07:38 10/17/24 07:38 10/17/24 07:38
I&O
10/16/24 10/17/24 10/18/24
06:59 06:59 06:59
Intake Total 480 / 480 960 / 960
Output Total 450 / 450 500 / 500
Balance 30 / 30 460 / 460
[2024-10-17] MEDS: COZAAR 50 MG PO (09:50)
[2024-10-17] MEDS: PROTONIX 40 MG PO (09:50)
[2024-10-17] MEDS: MACRODANTIN 50 MG PO (09:50)
[2024-10-17] MEDS: MIRAPEX 0.25 MG PO (09:50)
[2024-10-17] MEDS: SINEMET 25-100 1 TABLET PO (09:50)
[2024-10-17] MEDS: URECHOLINE 25 MG PO (09:50)
[2024-10-17] MEDS: PROSCAR 5 MG PO (09:50)
[2024-10-17 09:55] LABS: Blood Urea Nitrogen 18 mg/dl (9-20); Calcium 9.4 mg/dl (8.4-10.2); Carbon Dioxide 24 mmol/L (22-30); Chloride 106 mmol/L (98-107); Estimated Creatinine Clearance 66 ml/min; Glucose 131 mg/dl (70-99); Potassium 4.1 mmol/L (3.5-5.1); Sodium 140 mmol/L (135-145); eGFR > 60.00
[2024-10-17 10:52] LABS: Hematocrit 45.8 % (39.0-52.0); Hemoglobin 15.9 g/dL (13.0-18.0); Mean Corp Hgb Conc. 34.7 g/dL (33.0-37.0); Mean Corpuscular Hgb 32.4 pg (27.0-31.0); Mean Corpuscular Volume 93.3 fL (80.0-94.0); Mean Platelet Volume 9.7 fL (7.4-10.4); Platelet Count 155 10^3/uL (130-400); Red Blood Cell Count 4.91 10^6/uL (4.70-6.10); Red Cell Dist. Width 12.3 % (11.5-14.5); White Blood Cell Count 5.8 10^3/uL (4.8-10.8)
--- NOTE | 2024-10-17 11:19 | CON.ID ---
Consultation
-
Date/Time Consultation Requested: 10/17/2024 0920
Date/Time Consultation Performed: 10/17/2024 1110
Requesting Provider: Dr. Carvajal
Performing Provider: Dr. Ashley
Reason for Consultation: Bacteriuria
Chief Complaint / Past History
History of Present Illness
Ayden Mott is a 4-year-old man being evaluated depressed Dr. Carvajal in regards to bacteriuria. History is obtained from chart review, along with patient interview. Additional history obtained from the patient's son who is at the bedside.
The patient has an underlying history of dementia, and arrived to the [facility] ER on 10/15 following an unwitnessed fall that occurred the prior night. He presented for further evaluation as he developed significant bruising of his
forehead and right periorbital area. He denies any significant pain.
Workup in the ED included urinalysis, which was shown to be positive for pyuria, and Infectious Diseases is asked to comment on the possibility of a urinary tract infection.
No recent history of noted dysuria or hematuria. At present, patient denies any discomfort in the back. He describes no dysuria, or suprapubic tenderness.
Past History
Additional Past Medical History:
GERD
HTN
Dyslipidemia
Dementia
BPH
Macular degeneration
Hard of hearing
Additional Past Surgical History:
Cholecystectomy
Allergy History:
No Known Allergies Allergy (Verified 10/15/24 11:34)
Medications Reviewed: Yes
Current Antibiotics:
Macrodantin
Social History
Tobacco: Non-Smoker
Alcohol: None
Drug: None
Personal:
Living: Assisted
Family History
Family History: Not Pertinent
Review of Systems
Vital Signs
Temp Pulse Resp BP Pulse Ox
98.6 F 56 18 175/85 98
10/17/24 07:38 10/17/24 07:38 10/17/24 07:38 10/17/24 07:38 10/17/24 07:38
Physical Exam
Physical Exam
Constitutional: No Acute Distress, Comfortable and Non-toxic
Eyes: No Conjunctival Hemorrhage and Erythema
Cardiovascular: S1/S2; Negative S3/S4
Pulmonary: Non Labored
Gastrointestinal: Soft and Non Tender
Genito-Urinary: Negative Suprapubic Tenderness
Extremities: Negative Edema or Cyanosis
Neurological: Awake and Alert
Psychological: Confused
Lab / Diagnostic Study Results
10/17/24 10:28
10/17/24 09:32
Abs Immat Gran (auto) 0.0 10^3/uL (0-0.05) 10/15/24 16:30
Absolute Neuts (auto) 3.7 10^3/uL (1.4-6.5) 10/15/24 16:30
Absolute Lymphs (auto) 1.3 10^3/uL (1.2-3.4) 10/15/24 16:30
Absolute Monos (auto) 0.6 10^3/uL (0.1-0.6) 10/15/24 16:30
Absolute Basos (auto) 0.0 10^3/uL (0-0.2) 10/15/24 16:30
Immature Gran % 0.4 % (0-0.5) 10/15/24 16:30
Neutrophils % 64.7 % (42.2-75.2) 10/15/24 16:30
Lymphocytes % 22.0 % (20.5-51.1) 10/15/24 16:30
Monocytes % 10.6 % (1.7-9.3) H 10/15/24 16:30
Eosinophils % 1.6 % (0-6) 10/15/24 16:30
Basophils % 0.7 % (0-2) 10/15/24 16:30
Ur Squamous Epith Cells 0-2 /LPF (Few) 10/15/24 15:13
Microbiology Results
Micro:
10/15/24 15:13 Urine Culture - Preliminary
Urine Enterococcus species
Imaging:
10/15/2024 CT facial bones; CT head without contrast: No facial bone fracture. Right preseptal/periorbital soft tissue swelling/contusion. No acute intracranial hemorrhage. Please see full dictation for additional detail. Film personally viewed.
Assessment / Plan
Asymptomatic bacteriuria
� No need to treat at present
Recent fall
GERD
HTN
Dyslipidemia
Dementia
BPH
Macular degeneration
Hard of hearing
Recommendations:
Discontinue further Macrodantin, as no indication given asymptomatic bacteriuria.
Local care to forehead abrasion area.
Care Review
Plan reviewed with: Physician (Hospitalist)
[2024-10-17 12:05] VITALS: BP 160/70
--- NOTE | 2024-10-17 12:30 | CM ---
Patient has been cleared for discharge today, patient to return to [facility], patient has been set up with [facility], son to transport, message left for Kathryn in nursing at [facility]
Plan; Back to [facility] Memory care Unit
Plan; Return to [facility] with [facility] nurses
[phone]

[facility]
Report [phone]
--- NOTE | 2024-10-18 11:54 | W.DCSUMMARY ---
Discharge Summary
Discharge Data
Date of Admission: 10/15/24
Date of Discharge: 10/17/24
-
Pending Results: No
Hospital Course
Primary diagnoses:
Weakness and fall likely due to deconditioning in the setting of dementia
Secondary diagnoses:
Parkinson's disease
Benign prostatic hypertrophy
Essential hypertension
Hyperlipidemia
Consultants:
Infectious disease
Imaging:
CT brain: No facial bone fracture. Right preseptal periorbital soft tissue swelling/contusion that extend superiorly to involve the right paracentral frontal scalp. No acute intracranial hemorrhage or extra-axial collection.
Weakness and fall: This was likely due to deconditioning in the setting of dementia. On admission a urinalysis was ordered. The patient was without fever or leukocytosis. He was placed on Rocephin. Urine culture grew Enterococcus. Patient was
seen in consultation by infectious disease and this represented asymptomatic bacteriuria. Patient was seen by palliative care while hospitalized.
Discharge Plan
-
Patient Disposition: Home (Routine Discharge)
Discharge Diagnosis/Procedures: Fall, dementia
Condition: Good
Diet: Low Cholesterol
Activity: With assistance
Driving Restrictions: No driving
Referrals:
UNKNOWN,NO INTERVIEW [Family Provider] - in less than 1 week
Prescriptions:
Continued
losartan 50 mg tablet
50 mg PO DAILY
carbidopa-levodopa 25-100 mg tablet
1 tab PO BID@0700,1500
memantine 7 mg capsule,sprinkle,ER 24hr
7 mg PO DAILY
polyethylene glycol 3350 [HealthyLax] 17 gram Powder In Packet
17 g PO DAILY Qty: 30 0RF
pantoprazole 40 mg Tablet,Delayed Release (Dr/Ec)
40 mg PO DAILY Qty: 30 0RF
pramipexole 0.25 mg Tablet
0.25 mg PO DAILY
finasteride 5 mg Tablet
5 mg PO DAILY
bethanechol chloride 25 mg Tablet
25 mg PO BID@0800,1500
simvastatin 20 mg Tablet
20 mg PO HS
Biofreeze (menthol) 4 % Gel
1 applic TOPICAL QID
Discontinued
nitrofurantoin macrocrystal 50 mg Capsule
50 mg PO DAILY
Discharge Orders:
Discharge Patient (As Directed); Ordered 10/17/24
Ordered By: Franklin Carvajal
Discharge Date and Time
Discharge Date/Time: 10/17/24 14:28
Print Language: MACANESE
== END 2024-10-17 14:28 | disposition home health service (06) ==
LOC: 4 WEST ACU 17:47
PROVIDERS: Nurse Practitioner Family; ADMITTING PHYSICIAN Internal Medicine; CONSULT PHYSICIAN Internal Medicine Infectious Disease; EMERGENCY PHYSICIAN Emergency Medicine; OTHER PHYSICIAN Nurse Practitioner Gerontology
DX: S00.83XA Contusion of other part of head, initial encounter (principal); S00.81XA Abrasion of other part of head, initial encounter; R53.1 Weakness; W19.XXXA Unspecified fall, initial encounter; Y93.9 Activity, unspecified; Y92.099 Unspecified place in other non-institutional residence as the place of occurrence of the external cause; N40.0 Benign prostatic hyperplasia without lower urinary tract symptoms; F02.80 Dementia in other diseases classified elsewhere, unspecified severity, without behavioral disturbance, psychotic disturbance, mood disturbance, and anxiety; E78.00 Pure hypercholesterolemia, unspecified; I10 Essential (primary) hypertension; K21.9 Gastro-esophageal reflux disease without esophagitis; R22.0 Localized swelling, mass and lump, head; Z51.5 Encounter for palliative care; I25.10 Atherosclerotic heart disease of native coronary artery without angina pectoris; G20.A1 Parkinson's disease without dyskinesia, without mention of fluctuations; R00.1 Bradycardia, unspecified; R82.71 Bacteriuria; H35.30 Unspecified macular degeneration; Z66 Do not resuscitate; Z97.4 Presence of external hearing-aid; Z87.440 Personal history of urinary (tract) infections; Z90.79 Acquired absence of other genital organ(s); Z95.1 Presence of aortocoronary bypass graft; Z87.891 Personal history of nicotine dependence; Z90.49 Acquired absence of other specified parts of digestive tract
CPT/HCPCS: 70450; 70486; 80048; 80053; 81003; 81015; 85025; 85027; 87077; 87086; 87186; 93005; 96374; 97163; 97167; 99285; G0378

== ENCOUNTER 2024-10-24 17:47 | Emergency (ER) | payer MEDICARE, BC, SELFPAY ==
[2024-10-24 17:57] VITALS: BP 157/86
[2024-10-24 17:59] VITALS: BP 167/78
[2024-10-24 18:00] VITALS: BP 167/78
[2024-10-24 18:03] VITALS: BMI 25.9
[2024-10-24 18:36] LABS: Urine Albumin Negative (Neg - Trace); Urine Bilirubin Negative (Negative); Urine Character Clear (Clear); Urine Color Yellow; Urine Glucose Negative (Negative); Urine Ketone Negative (Negative); Urine Leukocyte 2+ (Negative); Urine Nitrite Negative (Negative); Urine Occult Blood Negative (Negative); Urine Specific Gravity 1.025 (<1.030); Urine Urobilinogen Negative (Neg - 1+)
[2024-10-24 18:36] LABS: % Basophils 0.2 % (0-2); % Eosinophils 0.2 % (0-6); % Immature Granulocytes 0.3 % (0-0.5); % Lymphocytes 7.3 % (20.5-51.1); % Monocytes 9.6 % (1.7-9.3); % Neutrophils 82.4 % (42.2-75.2); Absolute Lymphocytes 0.8 10^3/uL (1.2-3.4); Absolute Monocytes 1.1 10^3/uL (0.1-0.6); Absolute Neutrophils 9.1 10^3/uL (1.4-6.5); Hematocrit 39.4 % (39.0-52.0); Hemoglobin 13.7 g/dL (13.0-18.0); Mean Corp Hgb Conc. 34.8 g/dL (33.0-37.0); Mean Corpuscular Hgb 32.5 pg (27.0-31.0); Mean Corpuscular Volume 93.4 fL (80.0-94.0); Mean Platelet Volume 9.7 fL (7.4-10.4); Nucleated Red Blood Cells % 0 % (-); Platelet Count 145 10^3/uL (130-400); Red Blood Cell Count 4.22 10^6/uL (4.70-6.10); Red Cell Dist. Width 12.3 % (11.5-14.5)
[2024-10-24 18:50] LABS: ALT (SGPT) 11 U/L (0-50); AST (SGOT) 23 U/L (17-59); Albumin 3.9 g/dl (3.5-5.0); Alkaline Phosphatase 67 U/L (38-126); Blood Urea Nitrogen 23 mg/dl (9-20); Calcium 9.2 mg/dl (8.4-10.2); Carbon Dioxide 27 mmol/L (22-30); Chloride 102 mmol/L (98-107); Estimated Creatinine Clearance 59 ml/min; Glucose 116 mg/dl (70-99); Magnesium 2.2 mg/dl (1.6-2.3); Potassium 3.9 mmol/L (3.5-5.1); Sodium 137 mmol/L (135-145); Total Bilirubin 1.8 mg/dl (0.2-1.3); Total Protein 6.7 g/dl (6.3-8.2); eGFR > 60.00
[2024-10-24 19:04] LABS: Urine Calcium Oxalate Crystals Present; Urine Squamous Cell >30 /LPF (Few)
[2024-10-24 19:05] LABS: Urine Bacteria Moderate (Negative)
[2024-10-24 19:19] LABS: TSH Reflex To Free T4 0.67 uIU/ml (0.47-4.68)
[2024-10-24 20:01] VITALS: BP 169/96
--- NOTE | 2024-10-24 20:02 | ED.GENMED ---
History of Present Illness
General
Chief Complaint: Change in Mental Status
Source: records and family
Time Seen by Provider: 10/24/24 18:18
History of Present Illness
History of Present Illness:
84-year-old male sent to the emergency room from [facility] where he was observed to be less responsive than normal. Baseline is described as being alert, sitting up, interacting with family though he is confused. Patient has Parkinson's
disease which is led him to have multiple falls recently. No known fever. Patient is unable to provide any history.
Past History
Past History
ED Past Medical History: GERD, HTN, Hypercholesterolemia and Other (Prostatic hypertrophy, macular degeneration, bilateral hearing aids)
ED Past Surgical History: Cholecystectomy
Social History
Personal:
Living: with family
Employment: Retired
Family History
Family History: Other
Phy Exam
Physical Exam
Physical Exam:
General: Eyes closed, localizes the pain in his perform some intentional movement spontaneously. Moans or garbled speech at times.
Vitals: Mild hypertension
Head: Ecchymosis and abrasions noted about the face
Eyes: Pupils equal, EOMI
Throat: Airway intact, no exudates
Neck: Trachea midline
Lungs: Clear and equal b/l
Heart: Regular rate, no murmurs
Abd: Soft, Nontender, No pulsatile mass
Neuro: Seems to move all 4 extremities equally
Skin: Warm, dry, no rash
Extremities: pulses equal b/l, no edema
Course
Orders/Labs/Results
Orders:
Orders
10/24/24 18:26
CT Head W/o Iv Contrast Urgent
Comment:
Reason For Exam: altered mental status
10/24/24 18:27
Complete Blood Count/With Diff Urgent
Comprehensive Metabolic Panel Urgent
Magnesium Urgent
TSH Reflex To Free T4 Urgent
10/24/24 18:29
Urinalysis Reflex To Culture Urgent
Date Specimen was Collected: 10/24/24
Time Specimen was Collected: 18:27
Urine Microscopic Reflex Cult Urgent
Urine Culture Urgent
DEBORA Source: U
Specimen Description:
Date Specimen was Collected: 10/24/24
Time Specimen was Collected: 18:27
10/24/24 19:14
CT Cervical Spine W/o Iv Contr Urgent
Comment:
Reason For Exam: neck pain s/p fall
Abnormal Lab Results
10/24/24 10/24/24
18:27 18:29
WBC 11.0 H 10^3/uL
(4.8-10.8)
RBC 4.22 L 10^6/uL
(4.70-6.10)
MCH 32.5 H pg
(27.0-31.0)
Absolute Neuts (auto) 9.1 H 10^3/uL
(1.4-6.5)
Absolute Lymphs (auto) 0.8 L 10^3/uL
(1.2-3.4)
Absolute Monos (auto) 1.1 H 10^3/uL
(0.1-0.6)
Neutrophils % 82.4 H %
(42.2-75.2)
Lymphocytes % 7.3 L %
(20.5-51.1)
Monocytes % 9.6 H %
(1.7-9.3)
BUN 23 H mg/dl
(9-20)
Glucose 116 H mg/dl
(70-99)
Total Bilirubin 1.8 H mg/dl
(0.2-1.3)
Leukocyte Esterase Rfl 2+ A
(Negative)
Urine RBC 3-6 A /HPF
(0-2)
Urine WBC (Reflex) 11-15 A /HPF
(0-5)
Urine Bacteria (Reflex) Moderate A
(Negative)
10/24/24 18:27
10/24/24 18:27
Vital Signs
Initial and Last Documented VS:
Initial Vital Signs
BP
157/86
10/24/24 17:57
Last Documented Vital Signs
Temp Pulse Resp BP Pulse Ox
99.9 F 61 19 167/78 94
10/24/24 17:59 10/24/24 18:30 10/24/24 18:30 10/24/24 18:00 10/24/24 19:08
MDM/Problems Addressed
Differential Diagnosis Includes:
Subdural, CVA, UTI, electrolyte abnormality
MDM/Problems Addressed:
CT obtained shortly after arrival. This reveals a acute subdural hematoma on the left with tism-pc-ospfd shift. Case discussed with neurosurgery at [place], Dr. Olivier as well as trauma surgery at [place], Dr. De Leon. They accept the patient
as a transfer ER to ER. Family here at the bedside and notified of the circumstances. They consent to the transfer. They also state they would consent to surgery if they feel its necessary at [place].
Chronic conditions affecting care: Neurological disorder (Parkinson's disease)
*Radiology
Radiology exam reviewed: radiology read reviewed
*Pulse Oximetry
Patient hypoxic: no
*Critical Care Note
Total Time (30-74mins, 75-104mins- exclusive of procedures): 40 min
ED Attending Note
-
Portions of this chart may have been created with voice recognition software.� Occasional wrong word or��sound alike� substitutions may have occurred due to the inherent limitations of voice recognition software.
Discharge Plan
Departure
Patient Disposition: Acute Care Hospital
Date of Disposition: 10/24/24
Time of Disposition: 20:02
Condition: Serious
Discharge Problem:
Acute subdural hematoma
Prescriptions:
No Action
losartan 50 mg tablet
50 mg PO DAILY
carbidopa-levodopa 25-100 mg tablet
1 tab PO BID@0700,1500
memantine 7 mg capsule,sprinkle,ER 24hr
7 mg PO DAILY
polyethylene glycol 3350 [HealthyLax] 17 gram Powder In Packet
17 g PO DAILY Qty: 30 0RF
pantoprazole 40 mg Tablet,Delayed Release (Dr/Ec)
40 mg PO DAILY Qty: 30 0RF
pramipexole 0.25 mg Tablet
0.25 mg PO DAILY
finasteride 5 mg Tablet
5 mg PO DAILY
bethanechol chloride 25 mg Tablet
25 mg PO BID@0800,1500
simvastatin 20 mg Tablet
20 mg PO HS
Biofreeze (menthol) 4 % Gel
1 applic TOPICAL QID
nitrofurantoin macrocrystal 50 mg capsule
50 mg PO DAILY
Referrals:
Joe Servin MD [Family Provider] -
Hospital Transfer
Other hospital: [place]
I certify that the patient requires transfer: Yes
Discussed case with accepting physician: Dr. Aquino
Reason for transfer: higher level of care and specialties available
Interventions
Interventions:
*Risk Screen - Suicide Last Done: 10/24/24 17:59
*Neglect/Abuse Screening Last Done: 10/24/24 17:59
ED- Fall Risk Assessment Last Done: 10/24/24 18:04
ED- Pulmonary Assessment Last Done: 10/24/24 18:04
ED- Neurological Assessment Last Done: 10/24/24 18:04
ED- Cardiac Assessment Last Done: 10/24/24 18:04
Discharge Date and Time
Print Language: CA[place] ISLAND[place]
== END 2024-10-24 22:25 | disposition short-term general hospital (02) ==
LOC: EMR 17:47
PROVIDERS: EMERGENCY PHYSICIAN Emergency Medicine; FAMILY PHYSICIAN Family Medicine
DX: S06.5XAA Traumatic subdural hemorrhage with loss of consciousness status unknown, initial encounter (principal); S00.83XA Contusion of other part of head, initial encounter; S00.81XA Abrasion of other part of head, initial encounter; W19.XXXA Unspecified fall, initial encounter; R29.6 Repeated falls; G20.A1 Parkinson's disease without dyskinesia, without mention of fluctuations; K21.9 Gastro-esophageal reflux disease without esophagitis; I10 Essential (primary) hypertension; E78.00 Pure hypercholesterolemia, unspecified
CPT/HCPCS: 99291; 70450; 72125; 80053; 81003; 81015; 83735; 84443; 85025; 87086